=== PATIENT | male | born 1970 | race African-American/Black ===

== ENCOUNTER 2020-05-17 15:51 | Inpatient (IN) | payer OTHER ==
[2020-05-17 18:37] VITALS: BMI 24.0
[2020-05-17] MEDS ORDERED: BISMUTH SUBSALICYLATE 524 MG/30 ML UD PO PRN (21:13)
[2020-05-17] MEDS ORDERED: MAGNESIUM CITRATE 300 ML BOTTLE PO PRN (21:13)
[2020-05-17] MEDS ORDERED: NALOXONE HCL 0.4 MG/ML VIAL IM PRN (21:13)
[2020-05-17] MEDS ORDERED: MENTHOL/PHENOL 1 EACH UD MM PRN (21:13)
[2020-05-17] MEDS ORDERED: DICYCLOMINE HCL 10 MG CAPSULE PO PRN (21:13)
[2020-05-17] MEDS ORDERED: guaiFENesin 200 MG/10 ML 10 ML UNIT-DOSE CUPS PO PRN (21:13)
[2020-05-17] MEDS ORDERED: P-EPHED 60MG/TRIPROLIDI 2.5MG TABLET PO PRN (21:13)
[2020-05-17] MEDS ORDERED: ONDANSETRON *ODT* 4 MG TABLET SL PRN (21:13)
[2020-05-17] MEDS ORDERED: MAGNESIUM HYDROX 2400MG/30ML ORAL SUSPENSION 30 ML CUP PO PRN (21:13)
[2020-05-17] MEDS ORDERED: NICOTINE POLACRILEX 2 MG GUM BUC PRN (21:13)
[2020-05-17] MEDS ORDERED: NALOXONE (NARCAN) HCL 4 MG/0.1 ML SPRAY NS PRN (21:13)
[2020-05-17] MEDS ORDERED: MAG HYDROX/AL HYDROX/SIMETH 30 ML UNIT-DOSE CUP PO PRN (21:13)
[2020-05-17] MEDS ORDERED: ACETAMINOPHEN 325 MG TABLET (FP) PO PRN ×2 (21:13)
[2020-05-17] MEDS: MELATONIN 5 MG TABLETS PO SCH (22:17)
[2020-05-17] MEDS: THIAMINE HCL 100 MG TABLET (FP) PO SCH (22:17)
[2020-05-17] MEDS: METHOCARBAMOL 500 MG TABLET PO PRN (23:08)
[2020-05-18] MEDS ORDERED: METHADONE HCL 40 MG DISPERSABLE TABLET PO ONE (09:47)
[2020-05-18] MEDS ORDERED: chlordiazePOXIDE HCL 25 MG CAPSULE PO PRN (10:08)
[2020-05-18] MEDS: PRENATAL VITAMINS W/ FOLIC ACID TABLET (FP) PO SCH (10:08)
[2020-05-18] MEDS: NICOTINE 14 MG/24 HOURS TOPICAL PATCH TD SCH (10:08)
[2020-05-18] MEDS: METHOCARBAMOL 500 MG TABLET PO PRN ×2 (10:14→17:48)
[2020-05-18 11:29] LABS: POTASSIUM 3.9 mmol/L (3.5-5.1)
[2020-05-18 11:33] LABS: HEMATOCRIT 39.3 % (35.4-49); HEMOGLOBIN 12.6 GM/dL (11.7-16.9); MCH 23.4 pg (25.7-33.7); MCHC 32.1 g/dl (32.0-35.9); MEAN CELL VOLUME 72.9 fl (80-96); MEAN PLT VOLUME 8.1 fl (7.5-11.1); PLATELET COUNT 194 K/MM3 (134-434); RBC 5.39 M/mm3 (4.00-5.60); RDW 14.9 % (11.9-15.9); WHITE BLOOD COUNT 5.2 K/mm3 (4.0-10.0)
[2020-05-18 11:37] LABS: ALBUMIN 3.3 g/dl (3.4-5.0); BLOOD UREA NITROGEN 14.9 mg/dL (7-18); CALCIUM 8.7 mg/dL (8.5-10.1)
[2020-05-18 11:39] LABS: CREATININE 1.1 mg/dL (0.55-1.3)
[2020-05-18 11:41] LABS: BILIRUBIN,TOTAL 0.5 mg/dL (0.2-1); TOT PROT 6.3 g/dl (6.4-8.2)
[2020-05-18] MEDS: chlordiazePOXIDE HCL 25 MG CAPSULE PO SCH ×3 (12:49→22:25)
[2020-05-18] MEDS: MELATONIN 5 MG TABLETS PO SCH (22:26)
[2020-05-18] MEDS: THIAMINE HCL 100 MG TABLET (FP) PO SCH (22:27)
[2020-05-19] MEDS: chlordiazePOXIDE HCL 25 MG CAPSULE PO SCH ×4 (06:02→22:25)
[2020-05-19] MEDS: PRENATAL VITAMINS W/ FOLIC ACID TABLET (FP) PO SCH (10:27)
[2020-05-19] MEDS: NICOTINE 14 MG/24 HOURS TOPICAL PATCH TD SCH ×2 (10:28→13:42)
[2020-05-19] MEDS: METHOCARBAMOL 500 MG TABLET PO PRN ×2 (10:30→17:40)
[2020-05-19] MEDS: METHADONE HCL 40 MG DISPERSABLE TABLET PO SCH (11:35)
[2020-05-19] MEDS: VITAMINS A AND D TOPICAL OINTMENT 60 GM TUBE TP SCH ×2 (13:12→17:40)
[2020-05-19] MEDS: hydrOXYzine PAMOATE 25 MG CAPSULE (FP) PO PRN ×2 (17:40→22:25)
[2020-05-19 19:24] LABS: EPI CELLS 4 /uL (0-25.1); HYALINE CASTS 0 /uL (0-3.1); PH,URINE >= 9.0 (5.0-8.0); URINE APPEARANCE CLEAR; URINE BACTERIA 115 /uL (0-1359); URINE BILIRUBIN NEGATIVE (NEGATIVE); URINE COLOR YELLOW; URINE GLUCOSE (UA) NEGATIVE (NEGATIVE); URINE KETONE NEGATIVE (NEGATIVE); URINE LEUK ESTERASE NEGATIVE (NEGATIVE); URINE NITRITE NEGATIVE (NEGATIVE); URINE PROTEIN 1+ (NEGATIVE); URINE RBC 7 /uL (0-23.9); URINE WBC 20 /uL (0-25.8)
[2020-05-19] MEDS: THIAMINE HCL 100 MG TABLET (FP) PO SCH (22:25)
[2020-05-19] MEDS: MELATONIN 5 MG TABLETS PO SCH (23:02)
[2020-05-20] MEDS: VITAMINS A AND D TOPICAL OINTMENT 60 GM TUBE TP SCH ×4 (01:03→18:16)
[2020-05-20] MEDS: chlordiazePOXIDE HCL 25 MG CAPSULE PO SCH ×4 (05:41→22:31)
[2020-05-20] MEDS: METHADONE HCL 40 MG DISPERSABLE TABLET PO SCH (05:42)
[2020-05-20] MEDS: NICOTINE 14 MG/24 HOURS TOPICAL PATCH TD SCH (10:16)
[2020-05-20] MEDS: PRENATAL VITAMINS W/ FOLIC ACID TABLET (FP) PO SCH (10:16)
[2020-05-20] MEDS: hydrOXYzine PAMOATE 25 MG CAPSULE (FP) PO PRN ×2 (10:18→22:32)
[2020-05-20] MEDS: METHOCARBAMOL 500 MG TABLET PO PRN ×2 (10:18→18:17)
[2020-05-20] MEDS: IBUPROFEN 400 MG TABLET (FP) PO PRN ×2 (11:00→18:18)
[2020-05-20] MEDS ORDERED: MASKS NR ONE (21:16)
[2020-05-20] MEDS: THIAMINE HCL 100 MG TABLET (FP) PO SCH (22:31)
[2020-05-20] MEDS: MELATONIN 5 MG TABLETS PO SCH (22:32)
[2020-05-21] MEDS ORDERED: chlordiazePOXIDE HCL 10 MG CAPSULE PO PRN
[2020-05-21] MEDS: chlordiazePOXIDE HCL 10 MG CAPSULE PO SCH ×2 (05:27→10:17)
[2020-05-21] MEDS: METHADONE HCL 40 MG DISPERSABLE TABLET PO SCH (05:29)
[2020-05-21] MEDS: METHOCARBAMOL 500 MG TABLET PO PRN (05:33)
[2020-05-21] MEDS: NICOTINE 14 MG/24 HOURS TOPICAL PATCH TD SCH (10:17)
[2020-05-21] MEDS: PRENATAL VITAMINS W/ FOLIC ACID TABLET (FP) PO SCH (10:17)
[2020-05-21] MEDS: hydrOXYzine PAMOATE 25 MG CAPSULE (FP) PO PRN (10:17)
[2020-05-21] MEDS: VITAMINS A AND D TOPICAL OINTMENT 60 GM TUBE TP SCH (12:43)
[2020-05-21 12:51] VITALS: BP 110/57; PULSE 73; TEMP 96.8
[2020-05-22] MEDS ORDERED: chlordiazePOXIDE HCL 10 MG CAPSULE PO SCH (05:00)
[2020-05-23] MEDS ORDERED: chlordiazePOXIDE HCL 10 MG CAPSULE PO ONE (05:00)
== END 2020-05-21 15:24 | disposition left against medical advice (07) | DRG 770 ==
LOC: YASAS 15:51 → UNDOADMIN 20:58 → Y3N 20:58
PROVIDERS: ADMIT Allergy & Immunology; ATTEND Allergy & Immunology
PROC: HZ2ZZZZ Detoxification Services for Substance Abuse Treatment (ICD-10-PCS; principal; 2020-05-17)
DX: F10.230 Alcohol dependence with withdrawal, uncomplicated (principal); F11.20 Opioid dependence, uncomplicated; F14.10 Cocaine abuse, uncomplicated; F12.10 Cannabis abuse, uncomplicated; F17.210 Nicotine dependence, cigarettes, uncomplicated; F19.282 Other psychoactive substance dependence with psychoactive substance-induced sleep disorder; F19.24 Other psychoactive substance dependence with psychoactive substance-induced mood disorder; R45.89 Other symptoms and signs involving emotional state; Z56.0 Unemployment, unspecified; Z59.0 Homelessness
CPT/HCPCS: 36415; 80053; 81003; 85027; 86780; 93005; 93010; C9803; U0003

== ENCOUNTER 2020-06-13 10:58 | Inpatient (IN) | payer OTHER ==
[2020-06-13 11:35] VITALS: BMI 24.7
[2020-06-13] MEDS ORDERED: ONDANSETRON *ODT* 4 MG TABLET SL PRN (12:14)
[2020-06-13] MEDS ORDERED: MAGNESIUM CITRATE 300 ML BOTTLE PO PRN (12:14)
[2020-06-13] MEDS ORDERED: chlordiazePOXIDE HCL 25 MG CAPSULE PO PRN (12:14)
[2020-06-13] MEDS ORDERED: MAG HYDROX/AL HYDROX/SIMETH 30 ML UNIT-DOSE CUP PO PRN (12:14)
[2020-06-13] MEDS ORDERED: MAGNESIUM HYDROX 2400MG/30ML ORAL SUSPENSION 30 ML CUP PO PRN (12:14)
[2020-06-13] MEDS ORDERED: ACETAMINOPHEN 325 MG TABLET (FP) PO PRN ×2 (12:14)
[2020-06-13] MEDS ORDERED: NICOTINE POLACRILEX 2 MG GUM BUC PRN (12:14)
[2020-06-13] MEDS ORDERED: MENTHOL/PHENOL 1 EACH UD MM PRN (12:14)
[2020-06-13] MEDS ORDERED: BISMUTH SUBSALICYLATE 262 MG/15 ML BTL PO PRN (12:14)
[2020-06-13] MEDS: hydrOXYzine PAMOATE 25 MG CAPSULE (FP) PO SCH ×3 (13:27→22:37)
[2020-06-13] MEDS: PRENATAL VITAMINS W/ FOLIC ACID TABLET (FP) PO SCH (13:27)
[2020-06-13] MEDS: chlordiazePOXIDE HCL 25 MG CAPSULE PO SCH ×3 (13:28→22:38)
[2020-06-13 14:47] LABS: HEMOGLOBIN 13.1 GM/dL (11.7-16.9); MCH 23.4 pg (25.7-33.7); MEAN CELL VOLUME 73.1 fl (80-96); MEAN PLT VOLUME 8.6 fl (7.5-11.1); PLATELET COUNT 210 K/MM3 (134-434); RBC 5.61 M/mm3 (4.00-5.60); RDW 15.4 % (11.9-15.9); WHITE BLOOD COUNT 4.5 K/mm3 (4.0-10.0)
[2020-06-13 14:56] LABS: ALBUMIN 4.1 g/dl (3.4-5.0)
[2020-06-13 15:00] LABS: BILIRUBIN,TOTAL 0.6 mg/dL (0.2-1); TOT PROT 7.3 g/dl (6.4-8.2)
[2020-06-13] MEDS: MELATONIN 5 MG TABLETS PO SCH (22:38)
[2020-06-13] MEDS: THIAMINE HCL 100 MG TABLET (FP) PO SCH (22:38)
[2020-06-14] MEDS: hydrOXYzine PAMOATE 25 MG CAPSULE (FP) PO SCH ×5 (05:56→22:04)
[2020-06-14] MEDS: chlordiazePOXIDE HCL 25 MG CAPSULE PO SCH ×4 (05:56→22:05)
[2020-06-14] MEDS: METHADONE HCL 40 MG DISPERSABLE TABLET PO SCH (05:57)
[2020-06-14] MEDS: PRENATAL VITAMINS W/ FOLIC ACID TABLET (FP) PO SCH (10:39)
[2020-06-14] MEDS: NICOTINE 21 MG/24 HOURS TOPICAL PATCH TD SCH (12:13)
[2020-06-14] MEDS: THIAMINE HCL 100 MG TABLET (FP) PO SCH (22:04)
[2020-06-14] MEDS: MELATONIN 5 MG TABLETS PO SCH (22:04)
[2020-06-14] MEDS: METHOCARBAMOL 500 MG TABLET PO PRN (22:06)
[2020-06-15] MEDS: METHADONE HCL 40 MG DISPERSABLE TABLET PO SCH (05:21)
[2020-06-15] MEDS: chlordiazePOXIDE HCL 25 MG CAPSULE PO SCH ×4 (05:21→22:36)
[2020-06-15] MEDS: hydrOXYzine PAMOATE 25 MG CAPSULE (FP) PO SCH ×5 (05:22→22:36)
[2020-06-15] MEDS: PRENATAL VITAMINS W/ FOLIC ACID TABLET (FP) PO SCH (10:10)
[2020-06-15] MEDS: NICOTINE 21 MG/24 HOURS TOPICAL PATCH TD SCH (10:11)
[2020-06-15] MEDS: METHOCARBAMOL 500 MG TABLET PO PRN ×2 (10:13→18:33)
[2020-06-15] MEDS: VITAMINS A AND D TOPICAL OINTMENT 60 GM TUBE TP SCH ×2 (15:33→22:35)
[2020-06-15] MEDS: MELATONIN 5 MG TABLETS PO SCH (22:36)
[2020-06-15] MEDS: THIAMINE HCL 100 MG TABLET (FP) PO SCH (22:36)
[2020-06-15] MEDS: MELATONIN 5 MG TABLETS PO PRN (22:40)
[2020-06-16] MEDS ORDERED: chlordiazePOXIDE HCL 10 MG CAPSULE PO PRN
[2020-06-16] MEDS: hydrOXYzine PAMOATE 25 MG CAPSULE (FP) PO SCH ×5 (05:48→22:28)
[2020-06-16] MEDS: chlordiazePOXIDE HCL 10 MG CAPSULE PO SCH ×4 (05:48→22:30)
[2020-06-16] MEDS: METHADONE HCL 40 MG DISPERSABLE TABLET PO SCH (05:49)
[2020-06-16] MEDS: IBUPROFEN 400 MG TABLET (FP) PO PRN (05:51)
[2020-06-16] MEDS: METHOCARBAMOL 500 MG TABLET PO PRN ×3 (05:51→22:31)
[2020-06-16 08:06] LABS: SARS-CoV-2 NAA Not Detected (Not Detected)
[2020-06-16] MEDS: PRENATAL VITAMINS W/ FOLIC ACID TABLET (FP) PO SCH (10:01)
[2020-06-16] MEDS: VITAMINS A AND D TOPICAL OINTMENT 60 GM TUBE TP SCH ×2 (10:03→22:35)
[2020-06-16] MEDS: NICOTINE 21 MG/24 HOURS TOPICAL PATCH TD SCH (10:06)
[2020-06-16] MEDS: MELATONIN 5 MG TABLETS PO PRN (22:28)
[2020-06-16] MEDS: THIAMINE HCL 100 MG TABLET (FP) PO SCH (22:28)
[2020-06-16] MEDS: MELATONIN 5 MG TABLETS PO SCH (22:35)
[2020-06-17] MEDS: hydrOXYzine PAMOATE 25 MG CAPSULE (FP) PO SCH ×5 (05:29→22:30)
[2020-06-17] MEDS: chlordiazePOXIDE HCL 10 MG CAPSULE PO SCH ×2 (05:31→18:07)
[2020-06-17] MEDS: METHOCARBAMOL 500 MG TABLET PO PRN ×2 (05:31→18:06)
[2020-06-17] MEDS: METHADONE HCL 40 MG DISPERSABLE TABLET PO SCH (05:32)
[2020-06-17] MEDS: NICOTINE 14 MG/24 HOURS TOPICAL PATCH TD SCH ×2 (10:15→10:18)
[2020-06-17] MEDS: PRENATAL VITAMINS W/ FOLIC ACID TABLET (FP) PO SCH (10:17)
[2020-06-17] MEDS: VITAMINS A AND D TOPICAL OINTMENT 60 GM TUBE TP SCH ×2 (10:17→22:30)
[2020-06-17] MEDS: THIAMINE HCL 100 MG TABLET (FP) PO SCH (22:30)
[2020-06-17] MEDS: MELATONIN 5 MG TABLETS PO SCH (22:30)
[2020-06-17] MEDS: IBUPROFEN 400 MG TABLET (FP) PO PRN (22:32)
[2020-06-17] MEDS ORDERED: MASKS NR ONE (22:35)
[2020-06-18] MEDS ORDERED: chlordiazePOXIDE HCL 10 MG CAPSULE PO ONE (05:00)
[2020-06-18 06:43] VITALS: TEMP 97.1
[2020-06-18] MEDS: METHADONE HCL 40 MG DISPERSABLE TABLET PO SCH (06:43)
[2020-06-18] MEDS: hydrOXYzine PAMOATE 25 MG CAPSULE (FP) PO SCH ×2 (06:43→10:35)
[2020-06-18 09:23] VITALS: BP 110/61; PULSE 71
[2020-06-18] MEDS: VITAMINS A AND D TOPICAL OINTMENT 60 GM TUBE TP SCH (10:35)
[2020-06-18] MEDS: PRENATAL VITAMINS W/ FOLIC ACID TABLET (FP) PO SCH (10:36)
[2020-06-18] MEDS: NICOTINE 14 MG/24 HOURS TOPICAL PATCH TD SCH (10:36)
[2020-06-18] MEDS: METHOCARBAMOL 500 MG TABLET PO PRN (10:40)
== END 2020-06-18 11:22 | disposition other institution (70) | DRG 773 ==
LOC: YASAS 10:58 → Y3N 12:07
PROVIDERS: ADMIT Allergy & Immunology; ATTEND Allergy & Immunology
PROC: HZ2ZZZZ Detoxification Services for Substance Abuse Treatment (ICD-10-PCS; principal; 2020-06-13)
DX: F11.23 Opioid dependence with withdrawal (principal); F10.230 Alcohol dependence with withdrawal, uncomplicated; F14.20 Cocaine dependence, uncomplicated; F17.210 Nicotine dependence, cigarettes, uncomplicated; F12.20 Cannabis dependence, uncomplicated; F19.282 Other psychoactive substance dependence with psychoactive substance-induced sleep disorder; F19.24 Other psychoactive substance dependence with psychoactive substance-induced mood disorder; F41.9 Anxiety disorder, unspecified; R45.89 Other symptoms and signs involving emotional state; Z59.0 Homelessness
CPT/HCPCS: 36415; 80053; 85027; 86780; C9803; U0003; U0005

== ENCOUNTER 2020-06-18 11:26 | Inpatient (IN) | payer OTHER ==
[2020-06-18 12:07] VITALS: BP 112/71; PULSE 77; TEMP 97.5
[2020-06-18] MEDS ORDERED: hydrOXYzine PAMOATE 25 MG CAPSULE (FP) PO PRN (12:35)
[2020-06-18] MEDS ORDERED: P-EPHED 60MG/TRIPROLIDI 2.5MG TABLET PO PRN (12:35)
[2020-06-18] MEDS ORDERED: LOPERAMIDE HCL 2 MG CAPSULE PO PRN (12:35)
[2020-06-18] MEDS ORDERED: NICOTINE POLACRILEX 2 MG GUM BUC PRN (12:35)
[2020-06-18] MEDS ORDERED: guaiFENesin 200 MG/10 ML 10 ML UNIT-DOSE CUPS PO PRN (12:35)
[2020-06-18] MEDS ORDERED: MENTHOL/PHENOL 1 EACH UD MM PRN (12:35)
[2020-06-18] MEDS ORDERED: MAG HYDROX/AL HYDROX/SIMETH 30 ML UNIT-DOSE CUP PO PRN (12:35)
[2020-06-18] MEDS ORDERED: MAGNESIUM CITRATE 300 ML BOTTLE PO PRN (12:35)
[2020-06-18] MEDS ORDERED: ACETAMINOPHEN 325 MG TABLET (FP) PO PRN (12:35)
[2020-06-18] MEDS ORDERED: IBUPROFEN 400 MG TABLET (FP) PO PRN (12:35)
[2020-06-18] MEDS ORDERED: MAGNESIUM HYDROX 2400MG/30ML ORAL SUSPENSION 30 ML CUP PO PRN (12:35)
[2020-06-18] MEDS ORDERED: METHOCARBAMOL 500 MG TABLET PO SCH (14:00)
[2020-06-18] MEDS ORDERED: THIAMINE HCL 100 MG TABLET (FP) PO SCH (22:00)
[2020-06-18] MEDS ORDERED: MELATONIN 5 MG TABLETS PO SCH ×2 (22:00)
[2020-06-19] MEDS ORDERED: METHADONE HCL 40 MG DISPERSABLE TABLET PO SCH (06:00)
[2020-06-19] MEDS ORDERED: PRENATAL VITAMINS W/ FOLIC ACID TABLET (FP) PO SCH (10:00)
[2020-06-19] MEDS ORDERED: NICOTINE 7 MG/24 HOURS TOPICAL PATCH TD SCH (10:00)
== END 2020-06-18 13:40 | disposition left against medical advice (07) | DRG 770 ==
LOC: YASAS 11:26 → Y3W 11:28
PROVIDERS: ADMIT Allergy & Immunology; ATTEND Allergy & Immunology
PROC: HZ42ZZZ Group Counseling for Substance Abuse Treatment, Cognitive-Behavioral (ICD-10-PCS; principal; 2020-06-18)
DX: F11.20 Opioid dependence, uncomplicated (principal); F10.20 Alcohol dependence, uncomplicated; F12.20 Cannabis dependence, uncomplicated; F17.210 Nicotine dependence, cigarettes, uncomplicated; F19.24 Other psychoactive substance dependence with psychoactive substance-induced mood disorder; F41.9 Anxiety disorder, unspecified

== ENCOUNTER 2020-09-16 13:50 | Inpatient (IN) | payer OTHER ==
[2020-09-16 14:29] VITALS: BMI 23.3
[2020-09-16] MEDS ORDERED: NICOTINE POLACRILEX 2 MG GUM BUC PRN (18:43)
[2020-09-16] MEDS ORDERED: ONDANSETRON *ODT* 4 MG TABLET SL PRN (18:43)
[2020-09-16] MEDS ORDERED: ACETAMINOPHEN 325 MG TABLET (FP) PO PRN ×2 (18:43)
[2020-09-16] MEDS ORDERED: MAGNESIUM CITRATE 300 ML BOTTLE PO PRN (18:43)
[2020-09-16] MEDS ORDERED: MAG HYDROX/AL HYDROX/SIMETH 30 ML UNIT-DOSE CUP PO PRN (18:43)
[2020-09-16] MEDS ORDERED: MAGNESIUM HYDROX 2400MG/30ML ORAL SUSPENSION 30 ML CUP PO PRN (18:43)
[2020-09-16] MEDS ORDERED: MENTHOL/PHENOL 1 EACH UD MM PRN (18:43)
[2020-09-16] MEDS ORDERED: BISMUTH SUBSALICYLATE 524 MG/30 ML PO PRN (18:43)
[2020-09-16] MEDS ORDERED: LORazepam 1 MG TABLET PO PRN (18:46)
[2020-09-16] MEDS: METHOCARBAMOL 500 MG TABLET PO PRN (20:16)
[2020-09-16] MEDS: NICOTINE 14 MG/24 HOURS TOPICAL PATCH TD SCH (20:18)
[2020-09-16] MEDS: IBUPROFEN 400 MG TABLET (FP) PO PRN (20:30)
[2020-09-16] MEDS: MELATONIN 5 MG TABLETS PO SCH (22:20)
[2020-09-16] MEDS: hydrOXYzine PAMOATE 25 MG CAPSULE (FP) PO SCH (22:20)
[2020-09-16] MEDS: THIAMINE HCL 100 MG TABLET (FP) PO SCH (22:20)
[2020-09-16] MEDS: LORazepam 2 MG TABLET PO SCH (22:20)
[2020-09-17] MEDS: LORazepam 2 MG TABLET PO SCH ×4 (05:47→22:02)
[2020-09-17] MEDS: hydrOXYzine PAMOATE 25 MG CAPSULE (FP) PO SCH ×5 (05:48→21:57)
[2020-09-17] MEDS: METHOCARBAMOL 500 MG TABLET PO PRN ×3 (05:49→19:29)
[2020-09-17] MEDS ORDERED: methaDONE HCL 40 MG DISPERSABLE TABLET PO SCH (09:30)
[2020-09-17] MEDS ORDERED: methaDONE HCL 40 MG DISPERSABLE TABLET PO ONE (10:00)
[2020-09-17 10:18] LABS: HEMATOCRIT 41.3 % (35.4-49); HEMOGLOBIN 12.9 GM/dL (11.7-16.9); MCH 22.5 pg (25.7-33.7); MCHC 31.3 g/dl (32.0-35.9); PLATELET COUNT 192 10^3/uL (134-434); RBC 5.73 M/mm3 (4.00-5.60); RDW 14.6 % (11.9-15.9); WHITE BLOOD COUNT 4.9 K/mm3 (4.0-10.0)
[2020-09-17] MEDS: PRENATAL VITAMINS W/ FOLIC ACID TABLET (FP) PO SCH (10:19)
[2020-09-17] MEDS: NICOTINE 14 MG/24 HOURS TOPICAL PATCH TD SCH (10:19)
[2020-09-17] MEDS: IBUPROFEN 400 MG TABLET (FP) PO PRN (10:25)
[2020-09-17 10:30] LABS: BLOOD UREA NITROGEN 14.6 mg/dL (7-18); CALCIUM 8.6 mg/dL (8.5-10.1)
[2020-09-17 10:31] LABS: ALBUMIN 3.4 g/dl (3.4-5.0)
[2020-09-17 10:34] LABS: CREATININE 1.1 mg/dL (0.55-1.3)
[2020-09-17 10:36] LABS: BILIRUBIN,TOTAL 0.5 mg/dL (0.2-1); TOT PROT 6.3 g/dl (6.4-8.2)
[2020-09-17] MEDS: THIAMINE HCL 100 MG TABLET (FP) PO SCH (21:57)
[2020-09-17] MEDS: MELATONIN 5 MG TABLETS PO SCH (21:57)
[2020-09-18] MEDS: LORazepam 1 MG TABLET PO SCH ×2 (05:49→10:09)
[2020-09-18] MEDS: hydrOXYzine PAMOATE 25 MG CAPSULE (FP) PO SCH ×2 (05:49→10:10)
[2020-09-18] MEDS: METHOCARBAMOL 500 MG TABLET PO PRN ×2 (05:50→12:26)
[2020-09-18] MEDS ORDERED: methaDONE HCL 10 MG TABLET PO SCH (06:00)
[2020-09-18] MEDS: PRENATAL VITAMINS W/ FOLIC ACID TABLET (FP) PO SCH (10:09)
[2020-09-18] MEDS: NICOTINE 14 MG/24 HOURS TOPICAL PATCH TD SCH (10:10)
[2020-09-18 13:44] VITALS: BP 123/61; PULSE 63; TEMP 98.2
[2020-09-19] MEDS ORDERED: LORazepam 0.5 MG TABLET PO PRN
[2020-09-19] MEDS ORDERED: LORazepam 0.5 MG TABLET PO SCH (05:00)
[2020-09-20] MEDS ORDERED: LORazepam 0.5 MG TABLET PO ONE (05:00)
== END 2020-09-18 13:37 | disposition left against medical advice (07) | DRG 770 ==
LOC: YASAS 13:50 → Y6N 18:14
PROVIDERS: ADMIT Allergy & Immunology; ATTEND Allergy & Immunology
PROC: HZ2ZZZZ Detoxification Services for Substance Abuse Treatment (ICD-10-PCS; principal; 2020-09-16)
DX: F10.230 Alcohol dependence with withdrawal, uncomplicated (principal); F13.230 Sedative, hypnotic or anxiolytic dependence with withdrawal, uncomplicated; F11.20 Opioid dependence, uncomplicated; F14.20 Cocaine dependence, uncomplicated; F12.20 Cannabis dependence, uncomplicated; F17.213 Nicotine dependence, cigarettes, with withdrawal; R63.4 Abnormal weight loss; Z68.23 Body mass index [BMI] 23.0-23.9, adult
CPT/HCPCS: 36415; 80053; 82962; 85027; 86780; C9803; U0003; U0005

== ENCOUNTER 2020-10-09 13:51 | Inpatient (IN) | payer OTHER ==
[2020-10-09 15:38] VITALS: BMI 28.3
[2020-10-09] MEDS ORDERED: MAGNESIUM HYDROX 2400MG/30ML ORAL SUSPENSION 30 ML CUP PO PRN (21:28)
[2020-10-09] MEDS ORDERED: ONDANSETRON *ODT* 4 MG TABLET SL PRN (21:28)
[2020-10-09] MEDS ORDERED: P-EPHED 60MG/TRIPROLIDI 2.5MG TABLET PO PRN (21:28)
[2020-10-09] MEDS ORDERED: MENTHOL/PHENOL 1 EACH UD MM PRN (21:28)
[2020-10-09] MEDS ORDERED: NALOXONE HCL 0.4 MG/ML VIAL IM PRN (21:28)
[2020-10-09] MEDS ORDERED: MAG HYDROX/AL HYDROX/SIMETH 30 ML UNIT-DOSE CUP PO PRN (21:28)
[2020-10-09] MEDS ORDERED: MAGNESIUM CITRATE 300 ML BOTTLE PO PRN (21:28)
[2020-10-09] MEDS ORDERED: ACETAMINOPHEN 325 MG TABLET (FP) PO PRN (21:28)
[2020-10-09] MEDS ORDERED: DICYCLOMINE HCL 10 MG CAPSULE PO PRN (21:28)
[2020-10-09] MEDS ORDERED: NICOTINE 10 MG CARTRIDGE (INHALER) IH PRN (21:28)
[2020-10-09] MEDS ORDERED: NALOXONE (NARCAN) HCL 4 MG/0.1 ML SPRAY NS PRN (21:28)
[2020-10-09] MEDS ORDERED: BISMUTH SUBSALICYLATE 524 MG/30 ML PO PRN (21:28)
[2020-10-09] MEDS: hydrOXYzine PAMOATE 25 MG CAPSULE (FP) PO SCH (23:14)
[2020-10-09] MEDS: THIAMINE HCL 100 MG TABLET (FP) PO SCH (23:16)
[2020-10-09] MEDS: MELATONIN 5 MG TABLETS PO SCH (23:16)
[2020-10-09] MEDS: METHOCARBAMOL 500 MG TABLET PO PRN (23:17)
[2020-10-10] MEDS: hydrOXYzine PAMOATE 25 MG CAPSULE (FP) PO SCH ×5 (06:22→22:38)
[2020-10-10] MEDS ORDERED: diazePAM 5 MG TABLET PO PRN (09:34)
[2020-10-10] MEDS: methaDONE HCL 40 MG DISPERSABLE TABLET PO SCH (10:29)
[2020-10-10] MEDS: METHOCARBAMOL 500 MG TABLET PO PRN ×2 (10:29→18:05)
[2020-10-10] MEDS: NICOTINE 21 MG/24 HOURS TOPICAL PATCH TD SCH (10:29)
[2020-10-10] MEDS: PRENATAL VITAMINS W/ FOLIC ACID TABLET (FP) PO SCH (10:30)
[2020-10-10] MEDS: diazePAM 5 MG TABLET PO SCH ×3 (10:31→22:37)
[2020-10-10 12:34] LABS: HEMATOCRIT 38.2 % (35.4-49); HEMOGLOBIN 12.2 GM/dL (11.7-16.9); MCHC 31.9 g/dl (32.0-35.9); MEAN CELL VOLUME 72.2 fl (80-96); MEAN PLT VOLUME 8.3 fl (7.5-11.1); PLATELET COUNT 193 10^3/uL (134-434); RBC 5.29 M/mm3 (4.00-5.60); RDW 15.2 % (11.9-15.9); WHITE BLOOD COUNT 4.3 K/mm3 (4.0-10.0)
[2020-10-10 12:35] LABS: ALBUMIN 3.2 g/dl (3.4-5.0)
[2020-10-10 12:40] LABS: BILIRUBIN,TOTAL 0.3 mg/dL (0.2-1); TOT PROT 5.8 g/dl (6.4-8.2)
[2020-10-10] MEDS: MELATONIN 5 MG TABLETS PO SCH (22:38)
[2020-10-10] MEDS: THIAMINE HCL 100 MG TABLET (FP) PO SCH (22:38)
[2020-10-10] MEDS: IBUPROFEN 400 MG TABLET (FP) PO PRN (22:40)
[2020-10-11] MEDS: diazePAM 5 MG TABLET PO SCH ×4 (05:57→22:08)
[2020-10-11] MEDS: methaDONE HCL 40 MG DISPERSABLE TABLET PO SCH (05:57)
[2020-10-11] MEDS: hydrOXYzine PAMOATE 25 MG CAPSULE (FP) PO SCH ×5 (05:57→22:08)
[2020-10-11] MEDS: METHOCARBAMOL 500 MG TABLET PO PRN ×4 (06:01→22:08)
[2020-10-11] MEDS: PRENATAL VITAMINS W/ FOLIC ACID TABLET (FP) PO SCH (10:35)
[2020-10-11] MEDS: NICOTINE 21 MG/24 HOURS TOPICAL PATCH TD SCH (10:35)
[2020-10-11] MEDS: ACETAMINOPHEN 325 MG TABLET (FP) PO PRN (10:37)
[2020-10-11] MEDS: IBUPROFEN 400 MG TABLET (FP) PO PRN (18:02)
[2020-10-11] MEDS: MELATONIN 5 MG TABLETS PO SCH (22:07)
[2020-10-11] MEDS: THIAMINE HCL 100 MG TABLET (FP) PO SCH (22:07)
[2020-10-12] MEDS: diazePAM 5 MG TABLET PO SCH ×3 (05:57→22:12)
[2020-10-12] MEDS: methaDONE HCL 40 MG DISPERSABLE TABLET PO SCH (05:57)
[2020-10-12] MEDS: hydrOXYzine PAMOATE 25 MG CAPSULE (FP) PO SCH ×6 (05:57→22:11)
[2020-10-12] MEDS: METHOCARBAMOL 500 MG TABLET PO PRN ×2 (06:01→18:29)
[2020-10-12] MEDS: NICOTINE 21 MG/24 HOURS TOPICAL PATCH TD SCH (10:47)
[2020-10-12] MEDS: PRENATAL VITAMINS W/ FOLIC ACID TABLET (FP) PO SCH (10:48)
[2020-10-12] MEDS: MELATONIN 5 MG TABLETS PO SCH (22:11)
[2020-10-12] MEDS: THIAMINE HCL 100 MG TABLET (FP) PO SCH (22:11)
[2020-10-13] MEDS: METHOCARBAMOL 500 MG TABLET PO PRN ×3 (00:23→18:29)
[2020-10-13] MEDS: methaDONE HCL 40 MG DISPERSABLE TABLET PO SCH (05:55)
[2020-10-13] MEDS: diazePAM 5 MG TABLET PO SCH ×2 (05:57→18:29)
[2020-10-13] MEDS: hydrOXYzine PAMOATE 25 MG CAPSULE (FP) PO SCH ×5 (07:25→22:41)
[2020-10-13] MEDS: PRENATAL VITAMINS W/ FOLIC ACID TABLET (FP) PO SCH (10:00)
[2020-10-13] MEDS: ACETAMINOPHEN 325 MG TABLET (FP) PO PRN ×2 (10:00→18:32)
[2020-10-13] MEDS: NICOTINE 21 MG/24 HOURS TOPICAL PATCH TD SCH (10:02)
[2020-10-13] MEDS: MELATONIN 5 MG TABLETS PO SCH (22:41)
[2020-10-13] MEDS: THIAMINE HCL 100 MG TABLET (FP) PO SCH (22:41)
[2020-10-14] MEDS: METHOCARBAMOL 500 MG TABLET PO PRN ×2 (01:10→06:48)
[2020-10-14] MEDS ORDERED: diazePAM 5 MG TABLET PO ONE (06:00)
[2020-10-14] MEDS: methaDONE HCL 40 MG DISPERSABLE TABLET PO SCH (06:46)
[2020-10-14] MEDS: hydrOXYzine PAMOATE 25 MG CAPSULE (FP) PO SCH (06:47)
[2020-10-14 09:15] VITALS: BP 111/59; PULSE 64; TEMP 97.3
== END 2020-10-14 10:13 | disposition home or self-care (01) | DRG 773 ==
LOC: YASAS 13:51 → Y3N 22:07
PROVIDERS: ADMIT Allergy & Immunology; ATTEND Allergy & Immunology
PROC: HZ2ZZZZ Detoxification Services for Substance Abuse Treatment (ICD-10-PCS; principal; 2020-10-09)
DX: F10.230 Alcohol dependence with withdrawal, uncomplicated (principal); F13.230 Sedative, hypnotic or anxiolytic dependence with withdrawal, uncomplicated; F11.20 Opioid dependence, uncomplicated; F14.20 Cocaine dependence, uncomplicated; F12.20 Cannabis dependence, uncomplicated; F17.210 Nicotine dependence, cigarettes, uncomplicated; F19.24 Other psychoactive substance dependence with psychoactive substance-induced mood disorder; Z91.14 Patient's other noncompliance with medication regimen; Z56.0 Unemployment, unspecified; Z59.0 Homelessness
CPT/HCPCS: 36415; 80053; 85027; 86780; C9803; U0003; U0005

== ENCOUNTER 2021-04-19 15:38 | Inpatient (IN) | payer OTHER ==
[2021-04-19 18:19] VITALS: BMI 27.3
[2021-04-19] MEDS ORDERED: MAG HYDROX/AL HYDROX/SIMETH 30 ML UNIT-DOSE CUP PO PRN (20:29)
[2021-04-19] MEDS ORDERED: NALOXONE (NARCAN) HCL 4 MG/0.1 ML SPRAY NS PRN (20:29)
[2021-04-19] MEDS ORDERED: MENTHOL/PHENOL 1 EACH UD MM PRN (20:29)
[2021-04-19] MEDS ORDERED: LOPERAMIDE HCL 2 MG CAPSULE PO PRN (20:29)
[2021-04-19] MEDS ORDERED: DICYCLOMINE HCL 10 MG CAPSULE PO PRN (20:29)
[2021-04-19] MEDS ORDERED: guaiFENesin 200 MG/10 ML 10 ML UNIT-DOSE CUPS PO PRN (20:29)
[2021-04-19] MEDS ORDERED: MAGNESIUM CITRATE 300 ML BOTTLE PO PRN (20:29)
[2021-04-19] MEDS ORDERED: MAGNESIUM HYDROX 2400MG/30ML ORAL SUSPENSION 30 ML CUP PO PRN (20:29)
[2021-04-19] MEDS ORDERED: BISMUTH SUBSALICYLATE 524 MG/30 ML PO PRN (20:29)
[2021-04-19] MEDS ORDERED: ONDANSETRON *ODT* 4 MG TABLET SL PRN (20:29)
[2021-04-19] MEDS ORDERED: ACETAMINOPHEN 325 MG TABLET (FP) PO PRN ×2 (20:29)
[2021-04-19] MEDS ORDERED: P-EPHED 60MG/TRIPROLIDI 2.5MG TABLET PO PRN (20:29)
[2021-04-19] MEDS ORDERED: NALOXONE HCL 0.4 MG/ML VIAL IM PRN (20:29)
[2021-04-19] MEDS: MELATONIN 5 MG TABLETS PO SCH (22:50)
[2021-04-19] MEDS: THIAMINE HCL 100 MG TABLET (FP) PO SCH (22:50)
[2021-04-19] MEDS: hydrOXYzine PAMOATE 25 MG CAPSULE (FP) PO PRN (22:50)
[2021-04-19] MEDS: METHOCARBAMOL 500 MG TABLET PO PRN (22:53)
[2021-04-20] MEDS: hydrOXYzine PAMOATE 25 MG CAPSULE (FP) PO PRN ×4 (07:04→22:11)
[2021-04-20] MEDS: METHOCARBAMOL 500 MG TABLET PO PRN ×4 (07:04→22:10)
[2021-04-20] MEDS: IBUPROFEN 400 MG TABLET (FP) PO PRN ×2 (07:06→14:09)
[2021-04-20] MEDS: PRENATAL VITAMINS W/ FOLIC ACID TABLET (FP) PO SCH (10:02)
[2021-04-20] MEDS: NICOTINE 14 MG/24 HOURS TOPICAL PATCH TD SCH (10:03)
[2021-04-20] MEDS ORDERED: methaDONE HCL 10 MG TABLET PO ONE (10:30)
[2021-04-20] MEDS: diazePAM 5 MG TABLET PO SCH ×3 (10:44→22:11)
[2021-04-20] MEDS: NICOTINE POLACRILEX 2 MG GUM BUC PRN ×3 (10:47→15:29)
[2021-04-20 16:36] LABS: HEMATOCRIT 40.8 % (35.4-49); HEMOGLOBIN 12.6 GM/dL (11.7-16.9); MCHC 30.8 g/dl (32.0-35.9); MEAN CELL VOLUME 68.3 fl (80-96); MEAN PLT VOLUME 8.9 fl (7.5-11.1); PLATELET COUNT 241 10^3/uL (134-434); RBC 5.98 M/mm3 (4.00-5.60); RDW 16.8 % (11.9-15.9); WHITE BLOOD COUNT 4.4 K/mm3 (4.0-10.0)
[2021-04-20 16:52] LABS: ALBUMIN 3.9 g/dl (3.4-5.0); BLOOD UREA NITROGEN 12.6 mg/dL (7-18)
[2021-04-20 16:55] LABS: CREATININE 1.1 mg/dL (0.55-1.3)
[2021-04-20 16:57] LABS: BILIRUBIN,TOTAL 0.7 mg/dL (0.2-1)
[2021-04-20] MEDS: MELATONIN 5 MG TABLETS PO SCH (22:10)
[2021-04-20] MEDS: THIAMINE HCL 100 MG TABLET (FP) PO SCH (22:11)
[2021-04-21] MEDS: diazePAM 5 MG TABLET PO SCH ×3 (05:45→22:10)
[2021-04-21] MEDS: METHOCARBAMOL 500 MG TABLET PO PRN ×3 (05:46→22:45)
[2021-04-21] MEDS: NICOTINE POLACRILEX 2 MG GUM BUC PRN ×5 (05:48→22:46)
[2021-04-21 08:10] LABS: SARS-CoV-2 NAA Not Detected (Not Detected)
[2021-04-21] MEDS ORDERED: methaDONE HCL 10 MG TABLET PO ONE (10:00)
[2021-04-21] MEDS ORDERED: methaDONE 40 MG, methaDONE 10 MG PO ONE (10:10)
[2021-04-21] MEDS: PRENATAL VITAMINS W/ FOLIC ACID TABLET (FP) PO SCH (10:20)
[2021-04-21] MEDS: hydrOXYzine PAMOATE 25 MG CAPSULE (FP) PO PRN (10:20)
[2021-04-21] MEDS: diazePAM 5 MG TABLET PO PRN (10:21)
[2021-04-21] MEDS: NICOTINE 14 MG/24 HOURS TOPICAL PATCH TD SCH (10:22)
[2021-04-21] MEDS ORDERED: methaDONE HCL 40 MG DISPERSABLE TABLET ONE (10:23)
[2021-04-21] MEDS ORDERED: methaDONE HCL 10 MG TABLET ONE (10:23)
[2021-04-21] MEDS ORDERED: cloNIDine HCL 0.1 MG TABLET PO PRN (12:24)
[2021-04-21] MEDS: SERTRALINE HCL 50 MG TABLET (FP) PO SCH (15:34)
[2021-04-21] MEDS: ARIPiprazole 2 MG TABLET PO SCH ×2 (16:00→16:04)
[2021-04-21] MEDS: THIAMINE HCL 100 MG TABLET (FP) PO SCH (22:09)
[2021-04-21] MEDS: traZODone HCL 50 MG TABLET (FP) PO SCH (22:09)
[2021-04-21] MEDS: MELATONIN 5 MG TABLETS PO SCH (22:09)
[2021-04-22] MEDS ORDERED: methaDONE HCL 10 MG TABLET ONE (04:25)
[2021-04-22] MEDS ORDERED: methaDONE HCL 40 MG DISPERSABLE TABLET ONE (04:25)
[2021-04-22] MEDS ORDERED: methaDONE HCL 10 MG TABLET PO SCH (06:00)
[2021-04-22] MEDS: diazePAM 5 MG TABLET PO SCH ×2 (06:01→18:44)
[2021-04-22] MEDS: methaDONE 40 MG, methaDONE 10 MG PO SCH (06:01)
[2021-04-22] MEDS: METHOCARBAMOL 500 MG TABLET PO PRN ×3 (06:01→18:45)
[2021-04-22] MEDS: IBUPROFEN 400 MG TABLET (FP) PO PRN ×3 (06:06→23:00)
[2021-04-22] MEDS: NICOTINE POLACRILEX 2 MG GUM BUC PRN ×3 (06:11→15:09)
[2021-04-22] MEDS: hydrOXYzine PAMOATE 25 MG CAPSULE (FP) PO PRN ×4 (10:21→22:02)
[2021-04-22] MEDS: SERTRALINE HCL 50 MG TABLET (FP) PO SCH (10:21)
[2021-04-22] MEDS: PRENATAL VITAMINS W/ FOLIC ACID TABLET (FP) PO SCH (10:21)
[2021-04-22] MEDS: ARIPiprazole 2 MG TABLET PO SCH (10:21)
[2021-04-22] MEDS: diazePAM 5 MG TABLET PO PRN ×3 (10:22→22:02)
[2021-04-22] MEDS: NICOTINE 14 MG/24 HOURS TOPICAL PATCH TD SCH (10:22)
[2021-04-22] MEDS: THIAMINE HCL 100 MG TABLET (FP) PO SCH (22:01)
[2021-04-22] MEDS: MELATONIN 5 MG TABLETS PO SCH (22:01)
[2021-04-22] MEDS: traZODone HCL 50 MG TABLET (FP) PO SCH (22:01)
[2021-04-23] MEDS ORDERED: methaDONE HCL 10 MG TABLET ONE (03:37)
[2021-04-23] MEDS ORDERED: methaDONE HCL 40 MG DISPERSABLE TABLET ONE (03:38)
[2021-04-23] MEDS: methaDONE 40 MG, methaDONE 10 MG PO SCH (05:37)
[2021-04-23] MEDS: METHOCARBAMOL 500 MG TABLET PO PRN (05:41)
[2021-04-23] MEDS: hydrOXYzine PAMOATE 25 MG CAPSULE (FP) PO PRN (05:41)
[2021-04-23] MEDS: NICOTINE POLACRILEX 2 MG GUM BUC PRN ×2 (05:44→10:17)
[2021-04-23] MEDS ORDERED: diazePAM 5 MG TABLET PO ONE (06:00)
[2021-04-23 09:47] VITALS: BP 128/82; PULSE 63; TEMP 97.7
[2021-04-23] MEDS: ARIPiprazole 2 MG TABLET PO SCH (10:10)
[2021-04-23] MEDS: SERTRALINE HCL 50 MG TABLET (FP) PO SCH (10:10)
[2021-04-23] MEDS: PRENATAL VITAMINS W/ FOLIC ACID TABLET (FP) PO SCH (10:15)
[2021-04-23] MEDS: NICOTINE 14 MG/24 HOURS TOPICAL PATCH TD SCH (10:15)
== END 2021-04-23 11:06 | disposition home or self-care (01) | DRG 773 ==
LOC: YASAS 15:38 → Y6N 20:53
PROVIDERS: ADMIT Allergy & Immunology; ATTEND Allergy & Immunology
PROC: HZ2ZZZZ Detoxification Services for Substance Abuse Treatment (ICD-10-PCS; principal; 2021-04-19)
DX: F10.230 Alcohol dependence with withdrawal, uncomplicated (principal); F11.20 Opioid dependence, uncomplicated; F14.20 Cocaine dependence, uncomplicated; F17.210 Nicotine dependence, cigarettes, uncomplicated; F25.1 Schizoaffective disorder, depressive type; F19.282 Other psychoactive substance dependence with psychoactive substance-induced sleep disorder; F19.24 Other psychoactive substance dependence with psychoactive substance-induced mood disorder; F63.9 Impulse disorder, unspecified; Z91.19 Patient's noncompliance with other medical treatment and regimen; Z56.0 Unemployment, unspecified; Z59.00 Homelessness unspecified
CPT/HCPCS: 36415; 80053; 85027; 86780; 87811; C9803; U0003; U0005

== ENCOUNTER 2021-08-19 11:03 | Inpatient (IN) | payer OTHER ==
[2021-08-19 11:45] VITALS: BMI 28.2
[2021-08-19] MEDS ORDERED: DICYCLOMINE HCL 10 MG CAPSULE PO PRN (12:24)
[2021-08-19] MEDS ORDERED: NICOTINE 10 MG CARTRIDGE (INHALER) IH PRN (12:24)
[2021-08-19] MEDS ORDERED: BISMUTH SUBSALICYLATE 262 MG/15 ML BTL PO PRN (12:24)
[2021-08-19] MEDS ORDERED: IBUPROFEN 400 MG TABLET (FP) PO PRN (12:24)
[2021-08-19] MEDS ORDERED: MAGNESIUM HYDROX 2400MG/30ML ORAL SUSPENSION 30 ML CUP PO PRN (12:24)
[2021-08-19] MEDS ORDERED: IBUPROFEN 600 MG TABLET (FP) PO PRN (12:24)
[2021-08-19] MEDS ORDERED: MAGNESIUM CITRATE 300 ML BOTTLE PO PRN (12:24)
[2021-08-19] MEDS ORDERED: ONDANSETRON *ODT* 4 MG TABLET SL PRN (12:24)
[2021-08-19] MEDS ORDERED: ACETAMINOPHEN 325 MG TABLET (FP) PO PRN ×2 (12:24)
[2021-08-19] MEDS ORDERED: BENZOCAINE/MENTHOL (CHLORASEPTIC ) LOZENGE MM PRN (12:24)
[2021-08-19] MEDS ORDERED: LOPERAMIDE HCL 2 MG CAPSULE PO PRN (12:24)
[2021-08-19] MEDS ORDERED: MAG HYDROX/AL HYDROX/SIMETH 30 ML UNIT-DOSE CUP PO PRN (12:24)
[2021-08-19] MEDS: hydrOXYzine PAMOATE 25 MG CAPSULE (FP) PO PRN (17:49)
[2021-08-19] MEDS: METHOCARBAMOL 500 MG TABLET PO PRN (17:52)
[2021-08-19] MEDS: MELATONIN 5 MG TABLETS PO SCH (22:34)
[2021-08-19] MEDS: THIAMINE HCL 100 MG TABLET (FP) PO SCH (22:34)
[2021-08-20] MEDS ORDERED: methaDONE HCL 10 MG TABLET ONE (04:40)
[2021-08-20] MEDS ORDERED: methaDONE HCL 40 MG DISPERSABLE TABLET ONE (04:40)
[2021-08-20] MEDS: methaDONE 40 MG, methaDONE 10 MG PO SCH (05:43)
[2021-08-20] MEDS ORDERED: methaDONE HCL 10 MG TABLET PO SCH (06:00)
[2021-08-20] MEDS ORDERED: chlordiazePOXIDE HCL 25 MG CAPSULE PO PRN (08:53)
[2021-08-20] MEDS: chlordiazePOXIDE HCL 25 MG CAPSULE PO SCH ×3 (10:22→22:21)
[2021-08-20] MEDS: PRENATAL VITAMINS W/ FOLIC ACID TABLET (FP) PO SCH (10:23)
[2021-08-20] MEDS: NICOTINE 14 MG/24 HOURS TOPICAL PATCH TD SCH (10:23)
[2021-08-20 10:34] LABS: ALBUMIN 4.1 g/dl (3.4-5.0); CALCIUM 9.3 mg/dL (8.5-10.1)
[2021-08-20 10:36] LABS: BLOOD UREA NITROGEN 15.3 mg/dL (7-18)
[2021-08-20 10:37] LABS: CREATININE 1.2 mg/dL (0.55-1.3)
[2021-08-20 10:40] LABS: BILIRUBIN,TOTAL 0.4 mg/dL (0.2-1); TOT PROT 7.5 g/dl (6.4-8.2)
[2021-08-20 10:42] LABS: HEMATOCRIT 42.3 % (35.4-49); HEMOGLOBIN 13.3 GM/dL (11.7-16.9); MCH 21.4 pg (25.7-33.7); MCHC 31.4 g/dl (32.0-35.9); MEAN CELL VOLUME 68.3 fl (80-96); MEAN PLT VOLUME 8.5 fl (7.5-11.1); PLATELET COUNT 218 10^3/uL (134-434); RBC 6.19 M/mm3 (4.00-5.60); WHITE BLOOD COUNT 5.5 K/mm3 (4.0-10.0)
[2021-08-20] MEDS: METHOCARBAMOL 500 MG TABLET PO PRN ×2 (11:49→22:24)
[2021-08-20] MEDS: NICOTINE POLACRILEX 2 MG GUM BUC PRN ×4 (13:12→22:25)
[2021-08-20] MEDS: MELATONIN 5 MG TABLETS PO SCH (22:20)
[2021-08-20] MEDS: THIAMINE HCL 100 MG TABLET (FP) PO SCH (22:21)
[2021-08-20] MEDS: hydrOXYzine PAMOATE 25 MG CAPSULE (FP) PO PRN (22:22)
[2021-08-21] MEDS ORDERED: methaDONE HCL 40 MG DISPERSABLE TABLET ONE (04:36)
[2021-08-21] MEDS ORDERED: methaDONE HCL 10 MG TABLET ONE (04:36)
[2021-08-21] MEDS: chlordiazePOXIDE HCL 25 MG CAPSULE PO SCH ×4 (05:32→22:39)
[2021-08-21] MEDS: methaDONE 40 MG, methaDONE 10 MG PO SCH (05:33)
[2021-08-21] MEDS: METHOCARBAMOL 500 MG TABLET PO PRN (05:33)
[2021-08-21] MEDS: hydrOXYzine PAMOATE 25 MG CAPSULE (FP) PO PRN ×4 (05:35→22:38)
[2021-08-21] MEDS: NICOTINE POLACRILEX 2 MG GUM BUC PRN ×4 (05:37→20:47)
[2021-08-21] MEDS: PRENATAL VITAMINS W/ FOLIC ACID TABLET (FP) PO SCH (10:30)
[2021-08-21] MEDS: NICOTINE 14 MG/24 HOURS TOPICAL PATCH TD SCH (10:30)
[2021-08-21] MEDS: SERTRALINE HCL 50 MG TABLET (FP) PO SCH (12:27)
[2021-08-21] MEDS: ARIPiprazole 2 MG TABLET PO SCH (12:27)
[2021-08-21] MEDS: THIAMINE HCL 100 MG TABLET (FP) PO SCH (22:38)
[2021-08-21] MEDS: MELATONIN 5 MG TABLETS PO SCH (22:38)
[2021-08-22] MEDS ORDERED: methaDONE HCL 40 MG DISPERSABLE TABLET ONE (04:52)
[2021-08-22] MEDS ORDERED: methaDONE HCL 10 MG TABLET ONE (04:52)
[2021-08-22] MEDS: methaDONE 40 MG, methaDONE 10 MG PO SCH (05:45)
[2021-08-22] MEDS: chlordiazePOXIDE HCL 25 MG CAPSULE PO SCH ×4 (05:45→22:11)
[2021-08-22] MEDS: hydrOXYzine PAMOATE 25 MG CAPSULE (FP) PO PRN ×3 (05:47→22:12)
[2021-08-22] MEDS: METHOCARBAMOL 500 MG TABLET PO PRN ×3 (05:47→22:12)
[2021-08-22] MEDS: ARIPiprazole 2 MG TABLET PO SCH (11:31)
[2021-08-22] MEDS: SERTRALINE HCL 50 MG TABLET (FP) PO SCH (11:31)
[2021-08-22] MEDS: NICOTINE 14 MG/24 HOURS TOPICAL PATCH TD SCH (11:32)
[2021-08-22] MEDS: PRENATAL VITAMINS W/ FOLIC ACID TABLET (FP) PO SCH (11:32)
[2021-08-22] MEDS: NICOTINE POLACRILEX 2 MG GUM BUC PRN ×3 (11:36→22:13)
[2021-08-22] MEDS: THIAMINE HCL 100 MG TABLET (FP) PO SCH (22:11)
[2021-08-22] MEDS: MELATONIN 5 MG TABLETS PO SCH (22:11)
[2021-08-23] MEDS ORDERED: chlordiazePOXIDE HCL 10 MG CAPSULE PO PRN
[2021-08-23] MEDS ORDERED: methaDONE HCL 10 MG TABLET ONE (04:24)
[2021-08-23] MEDS ORDERED: methaDONE HCL 40 MG DISPERSABLE TABLET ONE (04:24)
[2021-08-23] MEDS: chlordiazePOXIDE HCL 10 MG CAPSULE PO SCH ×4 (05:22→22:04)
[2021-08-23] MEDS: methaDONE 40 MG, methaDONE 10 MG PO SCH (05:22)
[2021-08-23] MEDS: hydrOXYzine PAMOATE 25 MG CAPSULE (FP) PO PRN ×5 (05:23→22:05)
[2021-08-23] MEDS: ARIPiprazole 2 MG TABLET PO SCH (10:20)
[2021-08-23] MEDS: SERTRALINE HCL 50 MG TABLET (FP) PO SCH (10:21)
[2021-08-23] MEDS: METHOCARBAMOL 500 MG TABLET PO PRN ×3 (10:21→23:07)
[2021-08-23] MEDS: NICOTINE 14 MG/24 HOURS TOPICAL PATCH TD SCH (10:22)
[2021-08-23] MEDS: PRENATAL VITAMINS W/ FOLIC ACID TABLET (FP) PO SCH (10:25)
[2021-08-23] MEDS: NICOTINE POLACRILEX 2 MG GUM BUC PRN ×3 (10:26→18:17)
[2021-08-23] MEDS: THIAMINE HCL 100 MG TABLET (FP) PO SCH (22:04)
[2021-08-23] MEDS: MELATONIN 5 MG TABLETS PO SCH (22:04)
[2021-08-24] MEDS ORDERED: methaDONE HCL 10 MG TABLET ONE (04:22)
[2021-08-24] MEDS ORDERED: methaDONE HCL 40 MG DISPERSABLE TABLET ONE (04:22)
[2021-08-24] MEDS: chlordiazePOXIDE HCL 10 MG CAPSULE PO SCH ×2 (05:59→17:48)
[2021-08-24] MEDS: methaDONE 40 MG, methaDONE 10 MG PO SCH (05:59)
[2021-08-24] MEDS: METHOCARBAMOL 500 MG TABLET PO PRN ×3 (06:01→17:56)
[2021-08-24] MEDS: hydrOXYzine PAMOATE 25 MG CAPSULE (FP) PO PRN ×5 (06:01→22:54)
[2021-08-24] MEDS: NICOTINE POLACRILEX 2 MG GUM BUC PRN ×3 (06:05→14:48)
[2021-08-24] MEDS: NICOTINE 14 MG/24 HOURS TOPICAL PATCH TD SCH (10:36)
[2021-08-24] MEDS: PRENATAL VITAMINS W/ FOLIC ACID TABLET (FP) PO SCH (10:36)
[2021-08-24] MEDS: SERTRALINE HCL 50 MG TABLET (FP) PO SCH (10:36)
[2021-08-24] MEDS: ARIPiprazole 2 MG TABLET PO SCH (10:36)
[2021-08-24] MEDS: THIAMINE HCL 100 MG TABLET (FP) PO SCH (22:54)
[2021-08-24] MEDS: MELATONIN 5 MG TABLETS PO SCH (22:54)
[2021-08-25] MEDS ORDERED: methaDONE HCL 40 MG DISPERSABLE TABLET ONE (04:35)
[2021-08-25] MEDS ORDERED: methaDONE HCL 10 MG TABLET ONE (04:35)
[2021-08-25] MEDS ORDERED: chlordiazePOXIDE HCL 10 MG CAPSULE PO ONE (05:00)
[2021-08-25] MEDS: hydrOXYzine PAMOATE 25 MG CAPSULE (FP) PO PRN (07:37)
[2021-08-25] MEDS: METHOCARBAMOL 500 MG TABLET PO PRN (07:37)
[2021-08-25] MEDS: methaDONE 40 MG, methaDONE 10 MG PO SCH (07:38)
[2021-08-25 09:21] VITALS: BP 132/65; PULSE 74; TEMP 97.1
[2021-08-25] MEDS: ARIPiprazole 2 MG TABLET PO SCH (10:03)
[2021-08-25] MEDS: SERTRALINE HCL 50 MG TABLET (FP) PO SCH (10:03)
[2021-08-25] MEDS: NICOTINE 14 MG/24 HOURS TOPICAL PATCH TD SCH (10:04)
[2021-08-25] MEDS: NICOTINE POLACRILEX 2 MG GUM BUC PRN (10:05)
[2021-08-25] MEDS: PRENATAL VITAMINS W/ FOLIC ACID TABLET (FP) PO SCH (10:06)
== END 2021-08-25 10:36 | disposition home or self-care (01) | DRG 773 ==
LOC: YASAS 11:03 → UNDOADMIN 12:11 → Y3N 12:11
PROVIDERS: ADMIT Allergy & Immunology; ATTEND Surgery
PROC: HZ2ZZZZ Detoxification Services for Substance Abuse Treatment (ICD-10-PCS; principal; 2021-08-19)
DX: F10.230 Alcohol dependence with withdrawal, uncomplicated (principal); F11.20 Opioid dependence, uncomplicated; F14.20 Cocaine dependence, uncomplicated; F12.20 Cannabis dependence, uncomplicated; F17.210 Nicotine dependence, cigarettes, uncomplicated; F25.1 Schizoaffective disorder, depressive type; F19.24 Other psychoactive substance dependence with psychoactive substance-induced mood disorder; Z56.0 Unemployment, unspecified; Z59.00 Homelessness unspecified
CPT/HCPCS: 36415; 80053; 85027; 86780; 87811; C9803-CS; U0003; U0005

== ENCOUNTER 2022-03-19 16:58 | Inpatient (IN) | payer OTHER ==
[2022-03-19] MEDS ORDERED: BENZOCAINE/MENTHOL (CHLORASEPTIC ) LOZENGE MM PRN (23:42)
[2022-03-19] MEDS ORDERED: MAG HYDROX/AL HYDROX/SIMETH 30 ML UNIT-DOSE CUP PO PRN (23:42)
[2022-03-19] MEDS ORDERED: ACETAMINOPHEN 325 MG TABLET (FP) PO PRN ×2 (23:42)
[2022-03-19] MEDS ORDERED: DICYCLOMINE HCL 10 MG CAPSULE PO PRN (23:42)
[2022-03-19] MEDS ORDERED: POLYETHYLENE GLYCOL (HEALTHYLAX) 3350 17 GM PACKET PO PRN (23:42)
[2022-03-19] MEDS ORDERED: LOPERAMIDE HCL 2 MG CAPSULE PO PRN (23:42)
[2022-03-19] MEDS ORDERED: NALOXONE HCL (KLOXXADO) 8 MG SPRAY NS PRN (23:42)
[2022-03-19] MEDS ORDERED: MAGNESIUM HYDROX 2400MG/30ML ORAL SUSPENSION 30 ML CUP PO PRN (23:42)
[2022-03-19] MEDS ORDERED: ONDANSETRON *ODT* 4 MG TABLET SL PRN (23:42)
[2022-03-19] MEDS ORDERED: BISMUTH SUBSALICYLATE 524 MG/30 ML PO PRN (23:42)
[2022-03-20] MEDS ORDERED: diazePAM 5 MG TABLET PO PRN (00:02)
[2022-03-20 00:54] VITALS: BMI 29.1
[2022-03-20] MEDS: METHOCARBAMOL 500 MG TABLET PO PRN ×3 (02:27→22:22)
[2022-03-20] MEDS: diazePAM 5 MG TABLET PO SCH ×4 (05:06→22:20)
[2022-03-20] MEDS: PRENATAL VITAMINS W/ FOLIC ACID TABLET (FP) PO SCH (10:32)
[2022-03-20] MEDS: IBUPROFEN 600 MG TABLET (FP) PO PRN (15:46)
[2022-03-20] MEDS: MELATONIN 5 MG TABLETS PO SCH (22:20)
[2022-03-20] MEDS: THIAMINE HCL 100 MG TABLET (FP) PO SCH (22:20)
[2022-03-20] MEDS: NICOTINE POLACRILEX 2 MG GUM BUC PRN (22:23)
[2022-03-21] MEDS: diazePAM 5 MG TABLET PO SCH ×3 (05:08→22:10)
[2022-03-21] MEDS ORDERED: methaDONE HCL 10 MG TABLET PO ONE (08:57)
[2022-03-21] MEDS: PRENATAL VITAMINS W/ FOLIC ACID TABLET (FP) PO SCH (10:13)
[2022-03-21] MEDS: NICOTINE POLACRILEX 2 MG GUM BUC PRN ×2 (10:14→22:14)
[2022-03-21] MEDS: METHOCARBAMOL 500 MG TABLET PO PRN (10:14)
[2022-03-21] MEDS ORDERED: hydrOXYzine PAMOATE 25 MG CAPSULE (FP) PO ONE ×2 (13:04→14:12)
[2022-03-21] MEDS: THIAMINE HCL 100 MG TABLET (FP) PO SCH (22:10)
[2022-03-21] MEDS: MELATONIN 5 MG TABLETS PO SCH (22:11)
[2022-03-21] MEDS: IBUPROFEN 400 MG TABLET (FP) PO PRN (22:12)
[2022-03-22] MEDS: diazePAM 5 MG TABLET PO SCH ×2 (05:19→17:05)
[2022-03-22] MEDS: methaDONE HCL 10 MG TABLET PO SCH (05:20)
[2022-03-22] MEDS: IBUPROFEN 600 MG TABLET (FP) PO PRN (05:23)
[2022-03-22] MEDS: PRENATAL VITAMINS W/ FOLIC ACID TABLET (FP) PO SCH (09:27)
[2022-03-22] MEDS: hydrOXYzine PAMOATE 25 MG CAPSULE (FP) PO PRN ×2 (09:31→22:10)
[2022-03-22] MEDS ORDERED: ARIPiprazole 5 MG TABLET PO SCH (10:00)
[2022-03-22] MEDS ORDERED: SERTRALINE HCL 50 MG TABLET (FP) PO SCH (10:00)
[2022-03-22 15:45] LABS: BLOOD UREA NITROGEN 11.4 mg/dL (7-18); CALCIUM 8.6 mg/dL (8.5-10.1)
[2022-03-22 15:46] LABS: ALBUMIN 3.2 g/dl (3.4-5.0)
[2022-03-22 15:49] LABS: CREATININE 1.3 mg/dL (0.55-1.3)
[2022-03-22 15:50] LABS: BILIRUBIN,TOTAL 0.4 mg/dL (0.2-1); TOT PROT 6.1 g/dl (6.4-8.2)
[2022-03-22 16:08] LABS: HEMATOCRIT 40.1 % (35.4-49); HEMOGLOBIN 12.6 GM/dL (11.7-16.9); MCHC 31.4 g/dl (32.0-35.9); MEAN PLT VOLUME 8.4 fl (7.5-11.1); PLATELET COUNT 250 10^3/uL (134-434); RBC 5.73 M/mm3 (4.00-5.60); RDW 15.8 % (11.9-15.9); WHITE BLOOD COUNT 4.5 K/mm3 (4.0-10.0)
[2022-03-22] MEDS: IBUPROFEN 400 MG TABLET (FP) PO PRN (17:04)
[2022-03-22 21:30] VITALS: RESP 18
[2022-03-22] MEDS: THIAMINE HCL 100 MG TABLET (FP) PO SCH (22:06)
[2022-03-22] MEDS: MELATONIN 5 MG TABLETS PO SCH (22:06)
[2022-03-22] MEDS: METHOCARBAMOL 500 MG TABLET PO PRN (22:10)
[2022-03-22] MEDS: NICOTINE POLACRILEX 2 MG GUM BUC PRN (22:12)
[2022-03-23] MEDS: methaDONE HCL 10 MG TABLET PO SCH (05:22)
[2022-03-23] MEDS ORDERED: diazePAM 5 MG TABLET PO ONE (06:00)
[2022-03-23 09:13] VITALS: BP 116/58; PULSE 53; TEMP 97.7
== END 2022-03-23 09:35 | disposition home or self-care (01) | DRG 773 ==
LOC: YASAS 16:58 → Y6N 03-20 01:31
PROVIDERS: ADMIT Allergy & Immunology; ATTEND Family Medicine
PROC: HZ2ZZZZ Detoxification Services for Substance Abuse Treatment (ICD-10-PCS; principal; 2022-03-20)
DX: F10.230 Alcohol dependence with withdrawal, uncomplicated (principal); F11.20 Opioid dependence, uncomplicated; F14.20 Cocaine dependence, uncomplicated; F12.20 Cannabis dependence, uncomplicated; F17.210 Nicotine dependence, cigarettes, uncomplicated; F19.280 Other psychoactive substance dependence with psychoactive substance-induced anxiety disorder; F19.282 Other psychoactive substance dependence with psychoactive substance-induced sleep disorder; F25.1 Schizoaffective disorder, depressive type; F43.10 Post-traumatic stress disorder, unspecified; F41.9 Anxiety disorder, unspecified; Z62.810 Personal history of physical and sexual abuse in childhood; Z56.0 Unemployment, unspecified; Z59.00 Homelessness unspecified
CPT/HCPCS: 36415; 80053; 85027; 86780; 87811; C9803-CS; Q0162; U0003; U0005

== ENCOUNTER 2022-04-21 12:17 | Inpatient (IN) | payer OTHER ==
[2022-04-21 12:55] VITALS: BMI 28.3
[2022-04-21] MEDS ORDERED: IBUPROFEN 600 MG TABLET (FP) PO PRN (14:52)
[2022-04-21] MEDS ORDERED: BENZOCAINE/MENTHOL (CHLORASEPTIC ) LOZENGE MM PRN (14:52)
[2022-04-21] MEDS ORDERED: LOPERAMIDE HCL 2 MG CAPSULE PO PRN (14:52)
[2022-04-21] MEDS ORDERED: NALOXONE HCL (KLOXXADO) 8 MG SPRAY NS PRN (14:52)
[2022-04-21] MEDS ORDERED: MAG HYDROX/AL HYDROX/SIMETH 30 ML UNIT-DOSE CUP PO PRN (14:52)
[2022-04-21] MEDS ORDERED: BISMUTH SUBSALICYLATE 524 MG/30 ML PO PRN (14:52)
[2022-04-21] MEDS ORDERED: NICOTINE 10 MG CARTRIDGE (INHALER) IH PRN (14:52)
[2022-04-21] MEDS ORDERED: ACETAMINOPHEN 325 MG TABLET (FP) PO PRN ×2 (14:52)
[2022-04-21] MEDS ORDERED: IBUPROFEN 400 MG TABLET (FP) PO PRN (14:52)
[2022-04-21] MEDS ORDERED: POLYETHYLENE GLYCOL (HEALTHYLAX) 3350 17 GM PACKET PO PRN (14:52)
[2022-04-21] MEDS ORDERED: ONDANSETRON *ODT* 4 MG TABLET SL PRN (14:52)
[2022-04-21] MEDS ORDERED: MAGNESIUM HYDROX 2400MG/30ML ORAL SUSPENSION 30 ML CUP PO PRN (14:52)
[2022-04-21] MEDS ORDERED: chlordiazePOXIDE HCL 25 MG CAPSULE PO PRN (14:52)
[2022-04-21] MEDS ORDERED: DICYCLOMINE HCL 10 MG CAPSULE PO PRN (14:52)
[2022-04-21] MEDS: chlordiazePOXIDE HCL 25 MG CAPSULE PO SCH ×2 (17:01→22:09)
[2022-04-21] MEDS: NICOTINE 7 MG/24 HOURS TOPICAL PATCH TD SCH (17:01)
[2022-04-21] MEDS ORDERED: NICOTINE 7 MG/24 HOURS TOPICAL PATCH TD ONE (17:11)
[2022-04-21] MEDS ORDERED: chlordiazePOXIDE HCL 25 MG CAPSULE ONE (17:11)
[2022-04-21] MEDS: THIAMINE HCL 100 MG TABLET (FP) PO SCH (22:09)
[2022-04-21] MEDS: MELATONIN 5 MG TABLETS PO SCH (22:09)
[2022-04-22] MEDS: chlordiazePOXIDE HCL 25 MG CAPSULE PO SCH ×4 (05:30→22:08)
[2022-04-22] MEDS: METHOCARBAMOL 500 MG TABLET PO PRN ×2 (05:36→22:11)
[2022-04-22] MEDS: methaDONE HCL 10 MG TABLET PO SCH (10:20)
[2022-04-22] MEDS: NICOTINE 7 MG/24 HOURS TOPICAL PATCH TD SCH (10:20)
[2022-04-22] MEDS: PRENATAL VITAMINS W/ FOLIC ACID TABLET (FP) PO SCH (10:20)
[2022-04-22] MEDS: NICOTINE POLACRILEX 2 MG GUM BUC PRN ×2 (10:23→22:12)
[2022-04-22] MEDS: ARIPiprazole 5 MG TABLET PO SCH (11:11)
[2022-04-22] MEDS: SERTRALINE HCL 50 MG TABLET (FP) PO SCH (11:11)
[2022-04-22] MEDS: hydrOXYzine PAMOATE 25 MG CAPSULE (FP) PO PRN (12:08)
[2022-04-22 13:42] LABS: HEMATOCRIT 44.1 % (35.4-49); MCH 22.2 pg (25.7-33.7); MCHC 31.6 g/dl (32.0-35.9); MEAN CELL VOLUME 70.3 fl (80-96); MEAN PLT VOLUME 9.4 fl (7.5-11.1); PLATELET COUNT 195 10^3/uL (134-434); RBC 6.28 M/mm3 (4.00-5.60); RDW 15.4 % (11.9-15.9); WHITE BLOOD COUNT 4.7 K/mm3 (4.0-10.0)
[2022-04-22 14:29] LABS: ALBUMIN 3.8 g/dl (3.4-5.0); BLOOD UREA NITROGEN 15.1 mg/dL (7-18)
[2022-04-22 14:32] LABS: CREATININE 1.1 mg/dL (0.55-1.3)
[2022-04-22 14:34] LABS: BILIRUBIN,TOTAL 0.7 mg/dL (0.2-1); TOT PROT 6.9 g/dl (6.4-8.2)
[2022-04-22] MEDS: THIAMINE HCL 100 MG TABLET (FP) PO SCH (22:08)
[2022-04-22] MEDS: MELATONIN 5 MG TABLETS PO SCH (22:08)
[2022-04-23] MEDS: chlordiazePOXIDE HCL 25 MG CAPSULE PO SCH ×4 (05:57→22:32)
[2022-04-23] MEDS: methaDONE HCL 10 MG TABLET PO SCH (05:57)
[2022-04-23] MEDS: METHOCARBAMOL 500 MG TABLET PO PRN ×2 (06:00→17:33)
[2022-04-23] MEDS: PRENATAL VITAMINS W/ FOLIC ACID TABLET (FP) PO SCH (10:27)
[2022-04-23] MEDS: SERTRALINE HCL 50 MG TABLET (FP) PO SCH (10:28)
[2022-04-23] MEDS: ARIPiprazole 5 MG TABLET PO SCH (10:28)
[2022-04-23] MEDS: NICOTINE 7 MG/24 HOURS TOPICAL PATCH TD SCH (10:29)
[2022-04-23] MEDS: hydrOXYzine PAMOATE 25 MG CAPSULE (FP) PO PRN ×2 (12:38→22:35)
[2022-04-23] MEDS: THIAMINE HCL 100 MG TABLET (FP) PO SCH (22:33)
[2022-04-23] MEDS: MELATONIN 5 MG TABLETS PO SCH (22:34)
[2022-04-24] MEDS ORDERED: chlordiazePOXIDE HCL 10 MG CAPSULE PO PRN
[2022-04-24] MEDS: methaDONE HCL 10 MG TABLET PO SCH (05:26)
[2022-04-24] MEDS: chlordiazePOXIDE HCL 10 MG CAPSULE PO SCH ×4 (05:27→22:22)
[2022-04-24] MEDS: METHOCARBAMOL 500 MG TABLET PO PRN ×3 (05:28→22:25)
[2022-04-24] MEDS: SERTRALINE HCL 50 MG TABLET (FP) PO SCH (10:32)
[2022-04-24] MEDS: ARIPiprazole 5 MG TABLET PO SCH (10:32)
[2022-04-24] MEDS: PRENATAL VITAMINS W/ FOLIC ACID TABLET (FP) PO SCH (10:32)
[2022-04-24] MEDS: NICOTINE 7 MG/24 HOURS TOPICAL PATCH TD SCH (10:32)
[2022-04-24] MEDS: hydrOXYzine PAMOATE 25 MG CAPSULE (FP) PO PRN ×2 (10:33→22:25)
[2022-04-24] MEDS: MELATONIN 5 MG TABLETS PO SCH (22:22)
[2022-04-24] MEDS: THIAMINE HCL 100 MG TABLET (FP) PO SCH (22:22)
[2022-04-25] MEDS: chlordiazePOXIDE HCL 10 MG CAPSULE PO SCH ×2 (05:51→17:38)
[2022-04-25] MEDS: methaDONE HCL 10 MG TABLET PO SCH (05:51)
[2022-04-25] MEDS: METHOCARBAMOL 500 MG TABLET PO PRN ×2 (05:56→12:23)
[2022-04-25] MEDS: PRENATAL VITAMINS W/ FOLIC ACID TABLET (FP) PO SCH (10:25)
[2022-04-25] MEDS: ARIPiprazole 5 MG TABLET PO SCH (10:25)
[2022-04-25] MEDS: hydrOXYzine PAMOATE 25 MG CAPSULE (FP) PO PRN ×2 (10:25→22:34)
[2022-04-25] MEDS: SERTRALINE HCL 50 MG TABLET (FP) PO SCH (10:25)
[2022-04-25] MEDS: NICOTINE 7 MG/24 HOURS TOPICAL PATCH TD SCH (10:26)
[2022-04-25] MEDS: NICOTINE POLACRILEX 2 MG GUM BUC PRN (19:26)
[2022-04-25] MEDS: MELATONIN 5 MG TABLETS PO SCH (22:33)
[2022-04-25] MEDS: THIAMINE HCL 100 MG TABLET (FP) PO SCH (22:34)
[2022-04-26] MEDS ORDERED: chlordiazePOXIDE HCL 10 MG CAPSULE PO ONE (05:00)
[2022-04-26] MEDS: methaDONE HCL 10 MG TABLET PO SCH (05:36)
[2022-04-26] MEDS: METHOCARBAMOL 500 MG TABLET PO PRN (05:39)
[2022-04-26] MEDS: NICOTINE POLACRILEX 2 MG GUM BUC PRN (05:40)
[2022-04-26 09:47] VITALS: BP 104/72; PULSE 76; RESP 18; TEMP 97.9
[2022-04-26] MEDS: NICOTINE 7 MG/24 HOURS TOPICAL PATCH TD SCH (10:21)
[2022-04-26] MEDS: PRENATAL VITAMINS W/ FOLIC ACID TABLET (FP) PO SCH (10:21)
[2022-04-26] MEDS: ARIPiprazole 5 MG TABLET PO SCH (10:21)
[2022-04-26] MEDS: hydrOXYzine PAMOATE 25 MG CAPSULE (FP) PO PRN (10:24)
[2022-04-26] MEDS: SERTRALINE HCL 50 MG TABLET (FP) PO SCH (10:59)
== END 2022-04-26 11:23 | disposition other institution (70) | DRG 773 ==
LOC: YASAS 12:17 → Y6N 17:12
PROVIDERS: ADMIT Allergy & Immunology; ATTEND Surgery
PROC: HZ2ZZZZ Detoxification Services for Substance Abuse Treatment (ICD-10-PCS; principal; 2022-04-21)
DX: F10.230 Alcohol dependence with withdrawal, uncomplicated (principal); F11.20 Opioid dependence, uncomplicated; F14.20 Cocaine dependence, uncomplicated; F12.20 Cannabis dependence, uncomplicated; F17.213 Nicotine dependence, cigarettes, with withdrawal; F19.280 Other psychoactive substance dependence with psychoactive substance-induced anxiety disorder; F19.282 Other psychoactive substance dependence with psychoactive substance-induced sleep disorder; F25.1 Schizoaffective disorder, depressive type; Z59.00 Homelessness unspecified; Z56.0 Unemployment, unspecified
CPT/HCPCS: 36415; 80053; 85027; 86780; 87811; C9803-CS; U0003; U0005

== ENCOUNTER 2022-04-26 11:23 | Inpatient (IN) | payer OTHER ==
[2022-04-26] MEDS ORDERED: MAG HYDROX/AL HYDROX/SIMETH 30 ML UNIT-DOSE CUP PO PRN (11:48)
[2022-04-26] MEDS ORDERED: BENZOCAINE/MENTHOL (CHLORASEPTIC ) LOZENGE MM PRN (11:48)
[2022-04-26] MEDS ORDERED: guaiFENesin 200 MG/10 ML 10 ML UNIT-DOSE CUPS PO PRN (11:48)
[2022-04-26] MEDS ORDERED: IBUPROFEN 400 MG TABLET (FP) PO PRN (11:48)
[2022-04-26] MEDS ORDERED: POLYETHYLENE GLYCOL (HEALTHYLAX) 3350 17 GM PACKET PO PRN (11:48)
[2022-04-26] MEDS ORDERED: P-EPHED 60MG/TRIPROLIDI 2.5MG TABLET PO PRN (11:48)
[2022-04-26] MEDS ORDERED: ACETAMINOPHEN 325 MG TABLET (FP) PO PRN (11:48)
[2022-04-26] MEDS ORDERED: MAGNESIUM HYDROX 2400MG/30ML ORAL SUSPENSION 30 ML CUP PO PRN (11:48)
[2022-04-26] MEDS ORDERED: LOPERAMIDE HCL 2 MG CAPSULE PO PRN (11:48)
[2022-04-26] MEDS: MELATONIN 5 MG TABLETS PO SCH (21:18)
[2022-04-26] MEDS: THIAMINE HCL 100 MG TABLET (FP) PO SCH (21:18)
[2022-04-26] MEDS: hydrOXYzine PAMOATE 25 MG CAPSULE (FP) PO PRN (21:18)
[2022-04-27] MEDS: methaDONE HCL 10 MG TABLET PO SCH (06:10)
[2022-04-27] MEDS: PRENATAL VITAMINS W/ FOLIC ACID TABLET (FP) PO SCH (09:30)
[2022-04-27] MEDS: SERTRALINE HCL 50 MG TABLET (FP) PO SCH (09:30)
[2022-04-27] MEDS: NICOTINE 7 MG/24 HOURS TOPICAL PATCH TD SCH (09:30)
[2022-04-27] MEDS: ARIPiprazole 5 MG TABLET PO SCH (09:30)
[2022-04-27] MEDS: hydrOXYzine PAMOATE 25 MG CAPSULE (FP) PO PRN ×2 (09:31→21:08)
[2022-04-27] MEDS: THIAMINE HCL 100 MG TABLET (FP) PO SCH (21:08)
[2022-04-27] MEDS: MELATONIN 5 MG TABLETS PO SCH (21:08)
[2022-04-27] MEDS: NICOTINE 10 MG CARTRIDGE (INHALER) IH PRN (21:58)
[2022-04-28] MEDS: methaDONE HCL 10 MG TABLET PO SCH (06:15)
[2022-04-28] MEDS: SERTRALINE HCL 50 MG TABLET (FP) PO SCH (10:05)
[2022-04-28] MEDS: NICOTINE 7 MG/24 HOURS TOPICAL PATCH TD SCH (10:05)
[2022-04-28] MEDS: PRENATAL VITAMINS W/ FOLIC ACID TABLET (FP) PO SCH (10:05)
[2022-04-28] MEDS: ARIPiprazole 5 MG TABLET PO SCH (10:05)
[2022-04-28] MEDS: hydrOXYzine PAMOATE 25 MG CAPSULE (FP) PO PRN ×2 (10:06→21:37)
[2022-04-28] MEDS: THIAMINE HCL 100 MG TABLET (FP) PO SCH (21:36)
[2022-04-28] MEDS: MELATONIN 5 MG TABLETS PO SCH (21:36)
[2022-04-29] MEDS: methaDONE HCL 10 MG TABLET PO SCH (06:16)
[2022-04-29] MEDS: NICOTINE 7 MG/24 HOURS TOPICAL PATCH TD SCH (09:39)
[2022-04-29] MEDS: ARIPiprazole 5 MG TABLET PO SCH (09:39)
[2022-04-29] MEDS: PRENATAL VITAMINS W/ FOLIC ACID TABLET (FP) PO SCH (09:40)
[2022-04-29] MEDS: hydrOXYzine PAMOATE 25 MG CAPSULE (FP) PO PRN ×2 (09:40→21:09)
[2022-04-29] MEDS: SERTRALINE HCL 50 MG TABLET (FP) PO SCH (09:40)
[2022-04-29] MEDS: MELATONIN 5 MG TABLETS PO SCH (21:09)
[2022-04-29] MEDS: THIAMINE HCL 100 MG TABLET (FP) PO SCH (21:09)
[2022-04-30] MEDS: methaDONE HCL 10 MG TABLET PO SCH (06:30)
[2022-04-30] MEDS: SERTRALINE HCL 50 MG TABLET (FP) PO SCH (10:15)
[2022-04-30] MEDS: ARIPiprazole 5 MG TABLET PO SCH (10:17)
[2022-04-30] MEDS: PRENATAL VITAMINS W/ FOLIC ACID TABLET (FP) PO SCH (10:17)
[2022-04-30] MEDS: hydrOXYzine PAMOATE 25 MG CAPSULE (FP) PO PRN ×2 (10:19→21:19)
[2022-04-30] MEDS: NICOTINE 7 MG/24 HOURS TOPICAL PATCH TD SCH (10:19)
[2022-04-30] MEDS: NICOTINE 10 MG CARTRIDGE (INHALER) IH PRN (12:56)
[2022-04-30] MEDS: THIAMINE HCL 100 MG TABLET (FP) PO SCH (21:19)
[2022-04-30] MEDS: MELATONIN 5 MG TABLETS PO SCH (21:19)
[2022-05-01] MEDS: methaDONE HCL 10 MG TABLET PO SCH (06:06)
[2022-05-01] MEDS: hydrOXYzine PAMOATE 25 MG CAPSULE (FP) PO PRN ×2 (09:02→21:22)
[2022-05-01] MEDS: NICOTINE 7 MG/24 HOURS TOPICAL PATCH TD SCH (09:02)
[2022-05-01] MEDS: PRENATAL VITAMINS W/ FOLIC ACID TABLET (FP) PO SCH (09:02)
[2022-05-01] MEDS: SERTRALINE HCL 50 MG TABLET (FP) PO SCH (09:02)
[2022-05-01] MEDS: ARIPiprazole 5 MG TABLET PO SCH (09:02)
[2022-05-01] MEDS: THIAMINE HCL 100 MG TABLET (FP) PO SCH (21:22)
[2022-05-01] MEDS: MELATONIN 5 MG TABLETS PO SCH (21:22)
[2022-05-02] MEDS: methaDONE HCL 10 MG TABLET PO SCH (06:54)
[2022-05-02] MEDS: ARIPiprazole 5 MG TABLET PO SCH (09:58)
[2022-05-02] MEDS: NICOTINE 7 MG/24 HOURS TOPICAL PATCH TD SCH (09:59)
[2022-05-02] MEDS: hydrOXYzine PAMOATE 25 MG CAPSULE (FP) PO PRN ×2 (10:00→21:17)
[2022-05-02] MEDS: PRENATAL VITAMINS W/ FOLIC ACID TABLET (FP) PO SCH (10:00)
[2022-05-02] MEDS: SERTRALINE HCL 50 MG TABLET (FP) PO SCH (10:00)
[2022-05-02] MEDS: THIAMINE HCL 100 MG TABLET (FP) PO SCH (21:17)
[2022-05-02] MEDS: MELATONIN 5 MG TABLETS PO SCH (21:17)
[2022-05-03] MEDS: methaDONE HCL 10 MG TABLET PO SCH (06:18)
[2022-05-03 06:53] VITALS: BP 125/82; PULSE 57; RESP 20; TEMP 97.5
[2022-05-03] MEDS: SERTRALINE HCL 50 MG TABLET (FP) PO SCH (09:38)
[2022-05-03] MEDS: ARIPiprazole 5 MG TABLET PO SCH (09:38)
[2022-05-03] MEDS: NICOTINE 7 MG/24 HOURS TOPICAL PATCH TD SCH (09:38)
[2022-05-03] MEDS: hydrOXYzine PAMOATE 25 MG CAPSULE (FP) PO PRN (09:39)
[2022-05-03] MEDS: PRENATAL VITAMINS W/ FOLIC ACID TABLET (FP) PO SCH (09:39)
[2022-05-04] MEDS ORDERED: methaDONE HCL 10 MG TABLET PO SCH (06:00)
== END 2022-05-03 18:15 | disposition home or self-care (01) | DRG 772 ==
LOC: YASAS 11:23 → Y3E 11:24
PROVIDERS: ADMIT Allergy & Immunology; ATTEND Allergy & Immunology
PROC: HZ42ZZZ Group Counseling for Substance Abuse Treatment, Cognitive-Behavioral (ICD-10-PCS; principal; 2022-04-26)
DX: F11.20 Opioid dependence, uncomplicated (principal); F10.20 Alcohol dependence, uncomplicated; F14.20 Cocaine dependence, uncomplicated; F12.20 Cannabis dependence, uncomplicated; F17.210 Nicotine dependence, cigarettes, uncomplicated; F41.9 Anxiety disorder, unspecified; F32.A Depression, unspecified

== ENCOUNTER 2022-06-18 15:28 | Inpatient (IN) | payer OTHER ==
[2022-06-18 16:16] VITALS: BMI 28.9
[2022-06-18] MEDS ORDERED: DICYCLOMINE HCL 10 MG CAPSULE PO PRN (17:26)
[2022-06-18] MEDS ORDERED: BENZONATATE 200 MG CAPSULE PO PRN (17:26)
[2022-06-18] MEDS ORDERED: guaiFENesin 600 MG TABLET.ER (FP) PO PRN (17:26)
[2022-06-18] MEDS ORDERED: BISMUTH SUBSALICYLATE 524 MG/30 ML PO PRN (17:26)
[2022-06-18] MEDS ORDERED: MAG HYDROX/AL HYDROX/SIMETH 30 ML UNIT-DOSE CUP PO PRN (17:26)
[2022-06-18] MEDS ORDERED: POLYETHYLENE GLYCOL (HEALTHYLAX) 3350 17 GM PACKET PO PRN (17:26)
[2022-06-18] MEDS ORDERED: NICOTINE 10 MG CARTRIDGE (INHALER) IH PRN (17:26)
[2022-06-18] MEDS ORDERED: NALOXONE HCL (KLOXXADO) 8 MG SPRAY NS PRN (17:26)
[2022-06-18] MEDS ORDERED: NALOXONE HCL 0.4 MG/ML VIAL IM PRN (17:26)
[2022-06-18] MEDS ORDERED: LOPERAMIDE HCL 2 MG CAPSULE PO PRN (17:26)
[2022-06-18] MEDS ORDERED: ONDANSETRON *ODT* 4 MG TABLET SL PRN (17:26)
[2022-06-18] MEDS ORDERED: BENZOCAINE/MENTHOL (CHLORASEPTIC ) LOZENGE MM PRN (17:26)
[2022-06-18] MEDS ORDERED: MAGNESIUM HYDROX 2400MG/30ML ORAL SUSPENSION 30 ML CUP PO PRN (17:26)
[2022-06-18] MEDS: METHOCARBAMOL 500 MG TABLET PO PRN (18:05)
[2022-06-18] MEDS: diazePAM 5 MG TABLET PO PRN (18:05)
[2022-06-18] MEDS: THIAMINE HCL 100 MG TABLET (FP) PO SCH (22:43)
[2022-06-18] MEDS: MELATONIN 5 MG TABLETS PO SCH (22:43)
[2022-06-18] MEDS: diazePAM 5 MG TABLET PO SCH (22:44)
[2022-06-19] MEDS: diazePAM 5 MG TABLET PO SCH ×4 (05:31→22:08)
[2022-06-19] MEDS: IBUPROFEN 600 MG TABLET (FP) PO PRN ×3 (05:32→17:42)
[2022-06-19] MEDS: METHOCARBAMOL 500 MG TABLET PO PRN ×3 (05:33→17:42)
[2022-06-19 10:34] LABS: HEMOGLOBIN 12.4 GM/dL (11.7-16.9); MCH 22.2 pg (25.7-33.7); MCHC 32.7 g/dl (32.0-35.9); MEAN CELL VOLUME 67.8 fl (80-96); MEAN PLT VOLUME 9.1 fl (7.5-11.1); PLATELET COUNT 184 10^3/uL (134-434); RDW 15.5 % (11.9-15.9); WHITE BLOOD COUNT 4.4 K/mm3 (4.0-10.0)
[2022-06-19 10:36] LABS: BLOOD UREA NITROGEN 15.3 mg/dL (7-18); CALCIUM 8.6 mg/dL (8.5-10.1)
[2022-06-19 10:37] LABS: ALBUMIN 3.3 g/dl (3.4-5.0)
[2022-06-19 10:39] LABS: CREATININE 1.2 mg/dL (0.55-1.3)
[2022-06-19 10:41] LABS: BILIRUBIN,TOTAL 0.8 mg/dL (0.2-1); TOT PROT 6.2 g/dl (6.4-8.2)
[2022-06-19] MEDS: diazePAM 5 MG TABLET PO ONE (10:42)
[2022-06-19] MEDS: methaDONE HCL 10 MG TABLET PO SCH (10:44)
[2022-06-19] MEDS: PRENATAL VITAMINS W/ FOLIC ACID TABLET (FP) PO SCH (11:09)
[2022-06-19] MEDS: ACETAMINOPHEN 325 MG TABLET (FP) PO PRN (22:05)
[2022-06-19] MEDS: THIAMINE HCL 100 MG TABLET (FP) PO SCH (22:07)
[2022-06-19] MEDS: MELATONIN 5 MG TABLETS PO SCH (22:08)
[2022-06-20] MEDS: IBUPROFEN 600 MG TABLET (FP) PO PRN ×2 (05:44→13:12)
[2022-06-20] MEDS: methaDONE HCL 10 MG TABLET PO SCH (05:45)
[2022-06-20] MEDS: METHOCARBAMOL 500 MG TABLET PO PRN ×3 (05:45→20:21)
[2022-06-20] MEDS: diazePAM 5 MG TABLET PO SCH ×3 (05:45→22:23)
[2022-06-20] MEDS: ARIPiprazole 5 MG TABLET PO SCH (10:32)
[2022-06-20] MEDS: SERTRALINE HCL 50 MG TABLET (FP) PO SCH (10:32)
[2022-06-20] MEDS: PRENATAL VITAMINS W/ FOLIC ACID TABLET (FP) PO SCH (10:32)
[2022-06-20] MEDS: hydrOXYzine PAMOATE 25 MG CAPSULE (FP) PO PRN ×2 (10:51→17:34)
[2022-06-20] MEDS: diazePAM 5 MG TABLET PO PRN (17:33)
[2022-06-20] MEDS: MELATONIN 5 MG TABLETS PO SCH (22:22)
[2022-06-20] MEDS: THIAMINE HCL 100 MG TABLET (FP) PO SCH (22:22)
[2022-06-20] MEDS: ACETAMINOPHEN 325 MG TABLET (FP) PO PRN (22:24)
[2022-06-21] MEDS: METHOCARBAMOL 500 MG TABLET PO PRN ×3 (05:22→17:04)
[2022-06-21] MEDS: IBUPROFEN 400 MG TABLET (FP) PO PRN ×3 (05:22→22:26)
[2022-06-21] MEDS: methaDONE HCL 10 MG TABLET PO SCH (05:23)
[2022-06-21] MEDS: diazePAM 5 MG TABLET PO SCH ×2 (05:23→17:02)
[2022-06-21] MEDS: ARIPiprazole 5 MG TABLET PO SCH (10:05)
[2022-06-21] MEDS: PRENATAL VITAMINS W/ FOLIC ACID TABLET (FP) PO SCH (10:05)
[2022-06-21] MEDS: SERTRALINE HCL 50 MG TABLET (FP) PO SCH (10:06)
[2022-06-21] MEDS: hydrOXYzine PAMOATE 25 MG CAPSULE (FP) PO PRN ×2 (10:31→22:25)
[2022-06-21 11:17] LABS: GLUCOSE,FASTING 91 mg/dL (74-106)
[2022-06-21 11:20] LABS: SGPT/ALT 74 U/L (13-61)
[2022-06-21] MEDS: ACETAMINOPHEN 325 MG TABLET (FP) PO PRN (13:42)
[2022-06-21] MEDS: diazePAM 5 MG TABLET PO PRN (13:44)
[2022-06-21] MEDS: NICOTINE POLACRILEX 2 MG GUM BUC PRN ×2 (20:02→22:28)
[2022-06-21] MEDS: THIAMINE HCL 100 MG TABLET (FP) PO SCH (22:24)
[2022-06-21] MEDS: MELATONIN 5 MG TABLETS PO SCH (22:24)
[2022-06-22] MEDS: METHOCARBAMOL 500 MG TABLET PO PRN ×2 (00:34→10:07)
[2022-06-22] MEDS: diazePAM 5 MG TABLET PO ONE (05:37)
[2022-06-22] MEDS: methaDONE HCL 10 MG TABLET PO SCH (05:37)
[2022-06-22] MEDS: IBUPROFEN 400 MG TABLET (FP) PO PRN (05:39)
[2022-06-22 09:18] VITALS: BP 133/63; PULSE 64; RESP 17; TEMP 98
[2022-06-22] MEDS: PRENATAL VITAMINS W/ FOLIC ACID TABLET (FP) PO SCH (10:06)
[2022-06-22] MEDS: SERTRALINE HCL 50 MG TABLET (FP) PO SCH (10:06)
[2022-06-22] MEDS: ARIPiprazole 5 MG TABLET PO SCH (10:06)
[2022-06-22] MEDS: hydrOXYzine PAMOATE 25 MG CAPSULE (FP) PO PRN (10:07)
[2022-06-22] MEDS: ACETAMINOPHEN 325 MG TABLET (FP) PO PRN (10:07)
== END 2022-06-22 12:00 | disposition home or self-care (01) | DRG 773 ==
LOC: YASAS 15:28 → Y3N 17:14
PROVIDERS: ADMIT Allergy & Immunology; ATTEND Surgery
PROC: HZ2ZZZZ Detoxification Services for Substance Abuse Treatment (ICD-10-PCS; principal; 2022-06-18)
DX: F10.230 Alcohol dependence with withdrawal, uncomplicated (principal); F11.20 Opioid dependence, uncomplicated; F13.20 Sedative, hypnotic or anxiolytic dependence, uncomplicated; F14.20 Cocaine dependence, uncomplicated; F12.20 Cannabis dependence, uncomplicated; F17.210 Nicotine dependence, cigarettes, uncomplicated; F25.1 Schizoaffective disorder, depressive type; F19.24 Other psychoactive substance dependence with psychoactive substance-induced mood disorder; F41.9 Anxiety disorder, unspecified; F32.A Depression, unspecified; R73.9 Hyperglycemia, unspecified; R74.01 Elevation of levels of liver transaminase levels
CPT/HCPCS: 36415; 80053; 82947; 83036; 84460; 85027; 86780; 87811; C9803-CS; U0003; U0005

== ENCOUNTER 2022-07-27 13:05 | Inpatient (IN) | payer OTHER ==
[2022-07-27 13:16] VITALS: BMI 27.4
[2022-07-27] MEDS ORDERED: guaiFENesin 600 MG TABLET.ER (FP) PO PRN (14:49)
[2022-07-27] MEDS ORDERED: NALOXONE HCL (KLOXXADO) 8 MG SPRAY NS PRN (14:49)
[2022-07-27] MEDS ORDERED: MAGNESIUM HYDROX 2400MG/30ML ORAL SUSPENSION 30 ML CUP PO PRN (14:49)
[2022-07-27] MEDS ORDERED: BISMUTH SUBSALICYLATE 262 MG/15 ML BTL PO PRN (14:49)
[2022-07-27] MEDS ORDERED: DICYCLOMINE HCL 10 MG CAPSULE PO PRN (14:49)
[2022-07-27] MEDS ORDERED: POLYETHYLENE GLYCOL (HEALTHYLAX) 3350 17 GM PACKET PO PRN (14:49)
[2022-07-27] MEDS ORDERED: LORazepam 1 MG TABLET PO PRN (14:49)
[2022-07-27] MEDS ORDERED: BENZONATATE 200 MG CAPSULE PO PRN (14:49)
[2022-07-27] MEDS ORDERED: BENZOCAINE/MENTHOL (CHLORASEPTIC ) LOZENGE MM PRN (14:49)
[2022-07-27] MEDS ORDERED: ACETAMINOPHEN 325 MG TABLET (FP) PO PRN (14:49)
[2022-07-27] MEDS ORDERED: NALOXONE HCL 0.4 MG/ML VIAL IM PRN (14:49)
[2022-07-27] MEDS ORDERED: LOPERAMIDE HCL 2 MG CAPSULE PO PRN (14:49)
[2022-07-27] MEDS ORDERED: MAG HYDROX/AL HYDROX/SIMETH 30 ML UNIT-DOSE CUP PO PRN (14:49)
[2022-07-27] MEDS ORDERED: ONDANSETRON *ODT* 4 MG TABLET SL PRN (14:49)
[2022-07-27] MEDS: PRENATAL VITAMINS W/ FOLIC ACID TABLET (FP) PO SCH (15:51)
[2022-07-27] MEDS: hydrOXYzine PAMOATE 25 MG CAPSULE (FP) PO PRN (15:56)
[2022-07-27] MEDS: METHOCARBAMOL 500 MG TABLET PO PRN (15:56)
[2022-07-27] MEDS: LORazepam 2 MG TABLET PO SCH ×2 (17:22→22:34)
[2022-07-27] MEDS: IBUPROFEN 600 MG TABLET (FP) PO PRN (17:22)
[2022-07-27] MEDS: MELATONIN 5 MG TABLETS PO SCH (22:34)
[2022-07-27] MEDS: THIAMINE HCL 100 MG TABLET (FP) PO SCH (22:34)
[2022-07-28] MEDS: LORazepam 2 MG TABLET PO SCH ×4 (05:25→22:33)
[2022-07-28] MEDS: METHOCARBAMOL 500 MG TABLET PO PRN ×2 (05:27→17:47)
[2022-07-28] MEDS: hydrOXYzine PAMOATE 25 MG CAPSULE (FP) PO PRN ×2 (05:27→22:40)
[2022-07-28] MEDS: ARIPiprazole 5 MG TABLET PO SCH (10:09)
[2022-07-28] MEDS: PRENATAL VITAMINS W/ FOLIC ACID TABLET (FP) PO SCH (10:09)
[2022-07-28] MEDS: NICOTINE 7 MG/24 HOURS TOPICAL PATCH TD SCH (10:09)
[2022-07-28] MEDS: SERTRALINE HCL 50 MG TABLET (FP) PO SCH (10:10)
[2022-07-28] MEDS: methaDONE HCL 10 MG TABLET PO SCH (10:11)
[2022-07-28 11:41] LABS: HEMATOCRIT 40.2 % (35.4-49); MCH 22.4 pg (25.7-33.7); MCHC 32.4 g/dl (32.0-35.9); PLATELET COUNT 186 10^3/uL (134-434); RBC 5.82 M/mm3 (4.00-5.60); RDW 15.7 % (11.9-15.9); WHITE BLOOD COUNT 4.3 K/mm3 (4.0-10.0)
[2022-07-28 11:53] LABS: POTASSIUM 4.1 mmol/L (3.5-5.1)
[2022-07-28 12:00] LABS: CALCIUM 9.4 mg/dL (8.5-10.1)
[2022-07-28 12:03] LABS: CREATININE 1.1 mg/dL (0.55-1.3)
[2022-07-28 12:04] LABS: ALBUMIN 3.6 g/dl (3.4-5.0); TOT PROT 6.7 g/dl (6.4-8.2)
[2022-07-28 12:05] LABS: BLOOD UREA NITROGEN 12.7 mg/dL (7-18)
[2022-07-28 12:09] LABS: BILIRUBIN,TOTAL 0.6 mg/dL (0.2-1)
[2022-07-28] MEDS: THIAMINE HCL 100 MG TABLET (FP) PO SCH (22:32)
[2022-07-28] MEDS: MELATONIN 5 MG TABLETS PO SCH (22:33)
[2022-07-28] MEDS: LACTULOSE 20 GM/30 ML UDC (FOR ORAL USE ONLY) PO SCH (22:35)
[2022-07-28] MEDS: IBUPROFEN 600 MG TABLET (FP) PO PRN (22:40)
[2022-07-29] MEDS: LORazepam 1 MG TABLET PO SCH ×4 (05:35→22:36)
[2022-07-29] MEDS: methaDONE HCL 10 MG TABLET PO SCH (05:36)
[2022-07-29] MEDS: LACTULOSE 20 GM/30 ML UDC (FOR ORAL USE ONLY) PO SCH ×3 (05:44→22:37)
[2022-07-29] MEDS: METHOCARBAMOL 500 MG TABLET PO PRN ×2 (10:28→22:41)
[2022-07-29] MEDS: ARIPiprazole 5 MG TABLET PO SCH (10:28)
[2022-07-29] MEDS: PRENATAL VITAMINS W/ FOLIC ACID TABLET (FP) PO SCH (10:28)
[2022-07-29] MEDS: SERTRALINE HCL 50 MG TABLET (FP) PO SCH (10:28)
[2022-07-29] MEDS: hydrOXYzine PAMOATE 25 MG CAPSULE (FP) PO PRN ×2 (10:29→18:13)
[2022-07-29] MEDS: IBUPROFEN 600 MG TABLET (FP) PO PRN ×2 (10:30→17:43)
[2022-07-29] MEDS: NICOTINE 7 MG/24 HOURS TOPICAL PATCH TD SCH (10:32)
[2022-07-29] MEDS: THIAMINE HCL 100 MG TABLET (FP) PO SCH (22:36)
[2022-07-29] MEDS: MELATONIN 5 MG TABLETS PO SCH (22:39)
[2022-07-30] MEDS ORDERED: LORazepam 0.5 MG TABLET PO PRN
[2022-07-30] MEDS: methaDONE HCL 10 MG TABLET PO SCH (05:24)
[2022-07-30] MEDS: LORazepam 0.5 MG TABLET PO SCH ×4 (05:24→22:20)
[2022-07-30] MEDS: LACTULOSE 20 GM/30 ML UDC (FOR ORAL USE ONLY) PO SCH ×3 (06:31→22:20)
[2022-07-30 09:17] VITALS: RESP 18
[2022-07-30] MEDS: NICOTINE 7 MG/24 HOURS TOPICAL PATCH TD SCH (10:26)
[2022-07-30] MEDS: SERTRALINE HCL 50 MG TABLET (FP) PO SCH (10:27)
[2022-07-30] MEDS: hydrOXYzine PAMOATE 25 MG CAPSULE (FP) PO PRN ×2 (10:27→17:29)
[2022-07-30] MEDS: METHOCARBAMOL 500 MG TABLET PO PRN ×2 (10:27→17:28)
[2022-07-30] MEDS: PRENATAL VITAMINS W/ FOLIC ACID TABLET (FP) PO SCH (10:27)
[2022-07-30] MEDS: ARIPiprazole 5 MG TABLET PO SCH (10:28)
[2022-07-30] MEDS: NICOTINE POLACRILEX 4 MG GUM BUC PRN (17:30)
[2022-07-30] MEDS: MELATONIN 5 MG TABLETS PO SCH (22:20)
[2022-07-30] MEDS: THIAMINE HCL 100 MG TABLET (FP) PO SCH (22:20)
[2022-07-30] MEDS: IBUPROFEN 400 MG TABLET (FP) PO PRN (22:24)
[2022-07-31] MEDS ORDERED: LORazepam 0.5 MG TABLET PO ONE (05:00)
[2022-07-31] MEDS: LACTULOSE 20 GM/30 ML UDC (FOR ORAL USE ONLY) PO SCH (05:30)
[2022-07-31] MEDS: methaDONE HCL 10 MG TABLET PO SCH (05:30)
[2022-07-31] MEDS: IBUPROFEN 400 MG TABLET (FP) PO PRN (05:34)
[2022-07-31] MEDS: METHOCARBAMOL 500 MG TABLET PO PRN (05:35)
[2022-07-31 09:28] VITALS: BP 110/77; PULSE 72; TEMP 97.5
[2022-07-31] MEDS: SERTRALINE HCL 50 MG TABLET (FP) PO SCH (09:30)
[2022-07-31] MEDS: ARIPiprazole 5 MG TABLET PO SCH (09:30)
[2022-07-31] MEDS: PRENATAL VITAMINS W/ FOLIC ACID TABLET (FP) PO SCH (09:30)
[2022-07-31] MEDS: NICOTINE 7 MG/24 HOURS TOPICAL PATCH TD SCH (09:31)
[2022-07-31] MEDS: NICOTINE POLACRILEX 4 MG GUM BUC PRN (09:33)
== END 2022-07-31 09:36 | disposition home or self-care (01) | DRG 773 ==
LOC: YASAS 13:05 → Y6N 15:11
PROVIDERS: ADMIT Allergy & Immunology; ATTEND Surgery
PROC: HZ2ZZZZ Detoxification Services for Substance Abuse Treatment (ICD-10-PCS; principal; 2022-07-27)
DX: F10.230 Alcohol dependence with withdrawal, uncomplicated (principal); F13.20 Sedative, hypnotic or anxiolytic dependence, uncomplicated; F11.20 Opioid dependence, uncomplicated; F14.10 Cocaine abuse, uncomplicated; F17.210 Nicotine dependence, cigarettes, uncomplicated; F19.280 Other psychoactive substance dependence with psychoactive substance-induced anxiety disorder; F19.282 Other psychoactive substance dependence with psychoactive substance-induced sleep disorder; F19.24 Other psychoactive substance dependence with psychoactive substance-induced mood disorder; F25.1 Schizoaffective disorder, depressive type; R79.89 Other specified abnormal findings of blood chemistry; Z62.810 Personal history of physical and sexual abuse in childhood
CPT/HCPCS: 36415; 80053; 82140; 85027; 86780; 87635; C9803-CS; U0003; U0005

== ENCOUNTER 2022-09-06 11:43 | Inpatient (IN) | payer OTHER ==
[2022-09-06 12:37] VITALS: BMI 29.6
[2022-09-06] MEDS ORDERED: LOPERAMIDE HCL 2 MG CAPSULE PO PRN (14:03)
[2022-09-06] MEDS ORDERED: BISMUTH SUBSALICYLATE 262 MG/15 ML BTL PO PRN (14:03)
[2022-09-06] MEDS ORDERED: ACETAMINOPHEN 325 MG TABLET (FP) PO PRN (14:03)
[2022-09-06] MEDS ORDERED: MAGNESIUM HYDROX 2400MG/30ML ORAL SUSPENSION 30 ML CUP PO PRN (14:03)
[2022-09-06] MEDS ORDERED: POLYETHYLENE GLYCOL (HEALTHYLAX) 3350 17 GM PACKET PO PRN (14:03)
[2022-09-06] MEDS ORDERED: BENZONATATE 200 MG CAPSULE PO PRN (14:03)
[2022-09-06] MEDS ORDERED: NICOTINE 10 MG CARTRIDGE (INHALER) IH PRN (14:03)
[2022-09-06] MEDS ORDERED: NALOXONE HCL 0.4 MG/ML VIAL IM PRN (14:03)
[2022-09-06] MEDS ORDERED: IBUPROFEN 400 MG TABLET (FP) PO PRN (14:03)
[2022-09-06] MEDS ORDERED: NALOXONE HCL (KLOXXADO) 8 MG SPRAY NS PRN (14:03)
[2022-09-06] MEDS ORDERED: ONDANSETRON *ODT* 4 MG TABLET SL PRN (14:03)
[2022-09-06] MEDS ORDERED: DICYCLOMINE HCL 10 MG CAPSULE PO PRN (14:03)
[2022-09-06] MEDS ORDERED: MAG HYDROX/AL HYDROX/SIMETH 30 ML UNIT-DOSE CUP PO PRN (14:03)
[2022-09-06] MEDS ORDERED: BENZOCAINE/MENTHOL (CHLORASEPTIC ) LOZENGE MM PRN (14:03)
[2022-09-06] MEDS ORDERED: guaiFENesin 600 MG TABLET.ER (FP) PO PRN (14:03)
[2022-09-06] MEDS: METHOCARBAMOL 500 MG TABLET PO PRN (16:53)
[2022-09-06] MEDS: hydrOXYzine PAMOATE 25 MG CAPSULE (FP) PO PRN (16:53)
[2022-09-06] MEDS: THIAMINE HCL 100 MG TABLET (FP) PO SCH (22:11)
[2022-09-06] MEDS: MELATONIN 5 MG TABLETS PO SCH (22:12)
[2022-09-07] MEDS: hydrOXYzine PAMOATE 25 MG CAPSULE (FP) PO PRN ×2 (05:17→14:06)
[2022-09-07] MEDS: methaDONE HCL 10 MG TABLET PO SCH (05:17)
[2022-09-07] MEDS: IBUPROFEN 600 MG TABLET (FP) PO PRN ×3 (05:20→22:13)
[2022-09-07] MEDS ORDERED: chlordiazePOXIDE HCL 25 MG CAPSULE PO PRN (09:07)
[2022-09-07] MEDS: SERTRALINE HCL 50 MG TABLET (FP) PO SCH (10:17)
[2022-09-07] MEDS: PRENATAL VITAMINS W/ FOLIC ACID TABLET (FP) PO SCH (10:17)
[2022-09-07] MEDS: ARIPiprazole 5 MG TABLET PO SCH (10:17)
[2022-09-07] MEDS: METHOCARBAMOL 500 MG TABLET PO PRN (10:17)
[2022-09-07] MEDS: chlordiazePOXIDE HCL 25 MG CAPSULE PO SCH ×3 (10:18→22:11)
[2022-09-07 12:22] LABS: HEMATOCRIT 42.2 % (35.4-49); HEMOGLOBIN 12.8 GM/dL (11.7-16.9); MCH 21.5 pg (25.7-33.7); MCHC 30.4 g/dl (32.0-35.9); MEAN CELL VOLUME 70.6 fl (80-96); MEAN PLT VOLUME 9.6 fl (7.5-11.1); PLATELET COUNT 167 10^3/uL (134-434); POTASSIUM 3.8 mmol/L (3.5-5.1); RBC 5.98 M/mm3 (4.00-5.60); RDW 14.9 % (11.9-15.9); WHITE BLOOD COUNT 5.5 K/mm3 (4.0-10.0)
[2022-09-07 12:25] LABS: CALCIUM 9.1 mg/dL (8.5-10.1)
[2022-09-07 12:26] LABS: ALBUMIN 3.8 g/dl (3.4-5.0); BLOOD UREA NITROGEN 16.2 mg/dL (7-18)
[2022-09-07 12:29] LABS: CREATININE 1.3 mg/dL (0.55-1.3)
[2022-09-07 12:30] LABS: BILIRUBIN,TOTAL 0.5 mg/dL (0.2-1)
[2022-09-07 12:31] LABS: TOT PROT 7.1 g/dl (6.4-8.2)
[2022-09-07] MEDS: NICOTINE POLACRILEX 2 MG GUM BUC PRN ×3 (14:09→22:12)
[2022-09-07] MEDS: THIAMINE HCL 100 MG TABLET (FP) PO SCH (22:10)
[2022-09-07] MEDS: MELATONIN 5 MG TABLETS PO SCH (22:12)
[2022-09-08] MEDS: chlordiazePOXIDE HCL 25 MG CAPSULE PO SCH ×4 (05:09→21:59)
[2022-09-08] MEDS: methaDONE HCL 10 MG TABLET PO SCH (05:09)
[2022-09-08] MEDS: METHOCARBAMOL 500 MG TABLET PO PRN (10:14)
[2022-09-08] MEDS: hydrOXYzine PAMOATE 25 MG CAPSULE (FP) PO PRN (10:14)
[2022-09-08] MEDS: SERTRALINE HCL 50 MG TABLET (FP) PO SCH (10:15)
[2022-09-08] MEDS: PRENATAL VITAMINS W/ FOLIC ACID TABLET (FP) PO SCH (10:15)
[2022-09-08] MEDS: ARIPiprazole 5 MG TABLET PO SCH (10:15)
[2022-09-08] MEDS: IBUPROFEN 600 MG TABLET (FP) PO PRN (10:16)
[2022-09-08] MEDS: NICOTINE POLACRILEX 2 MG GUM BUC PRN (10:17)
[2022-09-08] MEDS: THIAMINE HCL 100 MG TABLET (FP) PO SCH (21:59)
[2022-09-08] MEDS: MELATONIN 5 MG TABLETS PO SCH (22:01)
[2022-09-09] MEDS: methaDONE HCL 10 MG TABLET PO SCH (05:41)
[2022-09-09] MEDS: chlordiazePOXIDE HCL 25 MG CAPSULE PO SCH ×4 (05:42→22:34)
[2022-09-09] MEDS: hydrOXYzine PAMOATE 25 MG CAPSULE (FP) PO PRN ×2 (05:44→13:46)
[2022-09-09] MEDS: METHOCARBAMOL 500 MG TABLET PO PRN ×2 (10:21→17:18)
[2022-09-09] MEDS: SERTRALINE HCL 50 MG TABLET (FP) PO SCH (10:21)
[2022-09-09] MEDS: ARIPiprazole 5 MG TABLET PO SCH (10:21)
[2022-09-09] MEDS: PRENATAL VITAMINS W/ FOLIC ACID TABLET (FP) PO SCH (10:21)
[2022-09-09] MEDS: IBUPROFEN 600 MG TABLET (FP) PO PRN ×2 (10:24→17:19)
[2022-09-09] MEDS: THIAMINE HCL 100 MG TABLET (FP) PO SCH (22:34)
[2022-09-09] MEDS: MELATONIN 5 MG TABLETS PO SCH (22:35)
[2022-09-10] MEDS ORDERED: chlordiazePOXIDE HCL 10 MG CAPSULE PO PRN
[2022-09-10] MEDS: chlordiazePOXIDE HCL 10 MG CAPSULE PO SCH ×3 (05:25→17:10)
[2022-09-10] MEDS: methaDONE HCL 10 MG TABLET PO SCH (05:25)
[2022-09-10] MEDS: METHOCARBAMOL 500 MG TABLET PO PRN (05:27)
[2022-09-10] MEDS: hydrOXYzine PAMOATE 25 MG CAPSULE (FP) PO PRN ×2 (09:19→17:12)
[2022-09-10] MEDS: PRENATAL VITAMINS W/ FOLIC ACID TABLET (FP) PO SCH (10:14)
[2022-09-10] MEDS: ARIPiprazole 5 MG TABLET PO SCH (10:14)
[2022-09-10] MEDS: SERTRALINE HCL 50 MG TABLET (FP) PO SCH (10:14)
[2022-09-10 13:15] VITALS: RESP 17
[2022-09-10 17:28] VITALS: BP 115/78; PULSE 67; TEMP 97.7
[2022-09-11] MEDS ORDERED: chlordiazePOXIDE HCL 10 MG CAPSULE PO SCH (05:00)
[2022-09-12] MEDS ORDERED: chlordiazePOXIDE HCL 10 MG CAPSULE PO ONE (05:00)
== END 2022-09-10 18:04 | disposition left against medical advice (07) | DRG 770 ==
LOC: YASAS 11:43 → Y3N 15:01 → Y6N 15:04
PROVIDERS: ADMIT Allergy & Immunology; ATTEND Surgery
PROC: HZ2ZZZZ Detoxification Services for Substance Abuse Treatment (ICD-10-PCS; principal; 2022-09-06)
DX: F10.230 Alcohol dependence with withdrawal, uncomplicated (principal); F14.20 Cocaine dependence, uncomplicated; F12.20 Cannabis dependence, uncomplicated; F17.210 Nicotine dependence, cigarettes, uncomplicated; F19.282 Other psychoactive substance dependence with psychoactive substance-induced sleep disorder; F19.280 Other psychoactive substance dependence with psychoactive substance-induced anxiety disorder; F43.10 Post-traumatic stress disorder, unspecified; Z62.810 Personal history of physical and sexual abuse in childhood; Z56.0 Unemployment, unspecified; Z59.00 Homelessness unspecified
CPT/HCPCS: 36415; 80053; 85027; 86780; 87635; 87811

== ENCOUNTER 2022-10-04 11:36 | Inpatient (IN) | payer OTHER ==
[2022-10-04 12:06] VITALS: BMI 29.2
[2022-10-04] MEDS ORDERED: BISMUTH SUBSALICYLATE 524 MG/30 ML PO PRN (13:22)
[2022-10-04] MEDS ORDERED: MAGNESIUM HYDROX 2400MG/30ML ORAL SUSPENSION 30 ML CUP PO PRN (13:22)
[2022-10-04] MEDS ORDERED: NALOXONE HCL (KLOXXADO) 8 MG SPRAY NS PRN (13:22)
[2022-10-04] MEDS ORDERED: LOPERAMIDE HCL 2 MG CAPSULE PO PRN (13:22)
[2022-10-04] MEDS ORDERED: POLYETHYLENE GLYCOL (HEALTHYLAX) 3350 17 GM PACKET PO PRN (13:22)
[2022-10-04] MEDS ORDERED: BENZONATATE 200 MG CAPSULE PO PRN (13:22)
[2022-10-04] MEDS ORDERED: BENZOCAINE/MENTHOL (CHLORASEPTIC ) LOZENGE MM PRN (13:22)
[2022-10-04] MEDS ORDERED: NALOXONE HCL 0.4 MG/ML VIAL IM PRN (13:22)
[2022-10-04] MEDS ORDERED: IBUPROFEN 600 MG TABLET (FP) PO PRN (13:22)
[2022-10-04] MEDS ORDERED: IBUPROFEN 400 MG TABLET (FP) PO PRN (13:22)
[2022-10-04] MEDS ORDERED: guaiFENesin 600 MG TABLET.ER (FP) PO PRN (13:22)
[2022-10-04] MEDS ORDERED: MAG HYDROX/AL HYDROX/SIMETH 30 ML UNIT-DOSE CUP PO PRN (13:22)
[2022-10-04] MEDS ORDERED: ONDANSETRON *ODT* 4 MG TABLET SL PRN (13:22)
[2022-10-04] MEDS ORDERED: ACETAMINOPHEN 325 MG TABLET (FP) PO PRN (13:22)
[2022-10-04] MEDS ORDERED: DICYCLOMINE HCL 10 MG CAPSULE PO PRN (13:22)
[2022-10-04] MEDS ORDERED: PRENATAL VITAMINS W/ FOLIC ACID TABLET (FP) PO ONE (15:42)
[2022-10-04] MEDS: PRENATAL VITAMINS W/ FOLIC ACID TABLET (FP) PO SCH (15:45)
[2022-10-04] MEDS: hydrOXYzine PAMOATE 25 MG CAPSULE (FP) PO PRN ×2 (17:30→22:12)
[2022-10-04] MEDS: METHOCARBAMOL 500 MG TABLET PO PRN ×2 (17:30→22:34)
[2022-10-04] MEDS: MELATONIN 5 MG TABLETS PO SCH (22:11)
[2022-10-04] MEDS: THIAMINE HCL 100 MG TABLET (FP) PO SCH (22:11)
[2022-10-05] MEDS: methaDONE HCL 10 MG TABLET PO SCH (08:44)
[2022-10-05] MEDS ORDERED: LORazepam 1 MG TABLET PO PRN (10:24)
[2022-10-05] MEDS: ARIPiprazole 5 MG TABLET PO SCH (10:41)
[2022-10-05] MEDS: PRENATAL VITAMINS W/ FOLIC ACID TABLET (FP) PO SCH (10:41)
[2022-10-05] MEDS: SERTRALINE HCL 50 MG TABLET (FP) PO SCH (10:41)
[2022-10-05] MEDS: hydrOXYzine PAMOATE 25 MG CAPSULE (FP) PO PRN ×2 (10:44→22:15)
[2022-10-05 11:29] LABS: POTASSIUM 4.2 mmol/L (3.5-5.1)
[2022-10-05 11:30] LABS: HEMOGLOBIN 13.6 GM/dL (11.7-16.9); MCH 21.8 pg (25.7-33.7); MEAN CELL VOLUME 70.3 fl (80-96); MEAN PLT VOLUME 9.7 fl (7.5-11.1); PLATELET COUNT 216 10^3/uL (134-434); RBC 6.26 M/mm3 (4.00-5.60); RDW 14.9 % (11.9-15.9); WHITE BLOOD COUNT 4.3 K/mm3 (4.0-10.0)
[2022-10-05 11:33] LABS: BLOOD UREA NITROGEN 11.4 mg/dL (7-18)
[2022-10-05 11:35] LABS: CALCIUM 9.5 mg/dL (8.5-10.1)
[2022-10-05 11:36] LABS: CREATININE 1.3 mg/dL (0.55-1.3)
[2022-10-05 11:37] LABS: BILIRUBIN,TOTAL 0.6 mg/dL (0.2-1); TOT PROT 7.3 g/dl (6.4-8.2)
[2022-10-05] MEDS: LORazepam 1 MG TABLET PO SCH ×2 (17:19→22:15)
[2022-10-05] MEDS: METHOCARBAMOL 500 MG TABLET PO PRN (17:38)
[2022-10-05] MEDS: THIAMINE HCL 100 MG TABLET (FP) PO SCH (22:15)
[2022-10-05] MEDS: MELATONIN 5 MG TABLETS PO SCH (22:16)
[2022-10-06] MEDS: METHOCARBAMOL 500 MG TABLET PO PRN ×3 (00:25→17:16)
[2022-10-06] MEDS: LORazepam 0.5 MG TABLET PO SCH ×4 (05:15→22:11)
[2022-10-06] MEDS: methaDONE HCL 10 MG TABLET PO SCH (05:16)
[2022-10-06] MEDS: PRENATAL VITAMINS W/ FOLIC ACID TABLET (FP) PO SCH (10:12)
[2022-10-06] MEDS: hydrOXYzine PAMOATE 25 MG CAPSULE (FP) PO PRN ×2 (10:13→22:11)
[2022-10-06] MEDS: ARIPiprazole 5 MG TABLET PO SCH (10:13)
[2022-10-06] MEDS: SERTRALINE HCL 50 MG TABLET (FP) PO SCH (10:13)
[2022-10-06] MEDS ORDERED: NICOTINE POLACRILEX 4 MG GUM BUC PRN (15:10)
[2022-10-06] MEDS: THIAMINE HCL 100 MG TABLET (FP) PO SCH (22:11)
[2022-10-06] MEDS: MELATONIN 5 MG TABLETS PO SCH (22:11)
[2022-10-07] MEDS ORDERED: LORazepam 0.5 MG TABLET PO ONE (05:00)
[2022-10-07] MEDS: methaDONE HCL 10 MG TABLET PO SCH (05:51)
[2022-10-07] MEDS: hydrOXYzine PAMOATE 25 MG CAPSULE (FP) PO PRN (05:52)
[2022-10-07 09:12] VITALS: BP 129/83; PULSE 56; RESP 17; TEMP 981
[2022-10-07] MEDS: PRENATAL VITAMINS W/ FOLIC ACID TABLET (FP) PO SCH (10:09)
[2022-10-07] MEDS: SERTRALINE HCL 50 MG TABLET (FP) PO SCH (10:09)
[2022-10-07] MEDS: METHOCARBAMOL 500 MG TABLET PO PRN (10:10)
[2022-10-07] MEDS: ARIPiprazole 5 MG TABLET PO SCH (10:10)
== END 2022-10-07 10:13 | disposition home or self-care (01) | DRG 773 ==
LOC: YASAS 11:36 → Y6N 15:40
PROVIDERS: ADMIT Allergy & Immunology; ATTEND Allergy & Immunology
PROC: HZ2ZZZZ Detoxification Services for Substance Abuse Treatment (ICD-10-PCS; principal; 2022-10-04)
DX: F10.230 Alcohol dependence with withdrawal, uncomplicated (principal); F11.20 Opioid dependence, uncomplicated; F14.20 Cocaine dependence, uncomplicated; F12.20 Cannabis dependence, uncomplicated; F17.210 Nicotine dependence, cigarettes, uncomplicated; F25.1 Schizoaffective disorder, depressive type; F19.280 Other psychoactive substance dependence with psychoactive substance-induced anxiety disorder; F19.282 Other psychoactive substance dependence with psychoactive substance-induced sleep disorder; F19.24 Other psychoactive substance dependence with psychoactive substance-induced mood disorder; F43.10 Post-traumatic stress disorder, unspecified; Z56.0 Unemployment, unspecified; Z59.00 Homelessness unspecified
CPT/HCPCS: 36415; 80053; 85027; 86780; 87635; 87811

== ENCOUNTER 2022-11-03 16:16 | Inpatient (IN) | payer OTHER ==
[2022-11-03 20:21] VITALS: BMI 29.7
[2022-11-04] MEDS ORDERED: MAG HYDROX/AL HYDROX/SIMETH 30 ML UNIT-DOSE CUP PO PRN (00:36)
[2022-11-04] MEDS ORDERED: BENZOCAINE/MENTHOL (CHLORASEPTIC ) LOZENGE MM PRN (00:36)
[2022-11-04] MEDS ORDERED: DICYCLOMINE HCL 10 MG CAPSULE PO PRN (00:36)
[2022-11-04] MEDS ORDERED: IBUPROFEN 600 MG TABLET (FP) PO PRN (00:36)
[2022-11-04] MEDS ORDERED: POLYETHYLENE GLYCOL (HEALTHYLAX) 3350 17 GM PACKET PO PRN (00:36)
[2022-11-04] MEDS ORDERED: ONDANSETRON *ODT* 4 MG TABLET SL PRN (00:36)
[2022-11-04] MEDS ORDERED: MAGNESIUM HYDROX 2400MG/30ML ORAL SUSPENSION 30 ML CUP PO PRN (00:36)
[2022-11-04] MEDS ORDERED: P-EPHED 60MG/TRIPROLIDI 2.5MG TABLET PO PRN (00:36)
[2022-11-04] MEDS ORDERED: BENZONATATE 200 MG CAPSULE PO PRN (00:36)
[2022-11-04] MEDS ORDERED: guaiFENesin 600 MG TABLET.ER (FP) PO PRN (00:36)
[2022-11-04] MEDS ORDERED: BISMUTH SUBSALICYLATE 524 MG/30 ML PO PRN (00:36)
[2022-11-04] MEDS ORDERED: NALOXONE HCL 0.4 MG/ML VIAL IM PRN (00:36)
[2022-11-04] MEDS ORDERED: LOPERAMIDE HCL 2 MG CAPSULE PO PRN (00:36)
[2022-11-04] MEDS ORDERED: ACETAMINOPHEN 325 MG TABLET (FP) PO PRN (00:36)
[2022-11-04] MEDS ORDERED: IBUPROFEN 400 MG TABLET (FP) PO PRN (00:36)
[2022-11-04] MEDS ORDERED: NALOXONE HCL (KLOXXADO) 8 MG SPRAY NS PRN (00:36)
[2022-11-04] MEDS: PRENATAL VITAMINS W/ FOLIC ACID TABLET (FP) PO SCH (10:30)
[2022-11-04] MEDS: hydrOXYzine PAMOATE 25 MG CAPSULE (FP) PO PRN ×2 (10:30→23:08)
[2022-11-04] MEDS: METHOCARBAMOL 500 MG TABLET PO PRN (10:30)
[2022-11-04] MEDS ORDERED: methaDONE HCL 10 MG TABLET PO ONE (10:45)
[2022-11-04] MEDS: SERTRALINE HCL 50 MG TABLET (FP) PO SCH (11:00)
[2022-11-04] MEDS: ARIPiprazole 5 MG TABLET PO SCH (11:00)
[2022-11-04] MEDS: diazePAM 5 MG TABLET PO SCH ×2 (17:05→22:05)
[2022-11-04] MEDS: MELATONIN 5 MG TABLETS PO SCH (22:06)
[2022-11-04] MEDS: THIAMINE HCL 100 MG TABLET (FP) PO SCH (22:06)
[2022-11-05] MEDS: methaDONE HCL 10 MG TABLET PO SCH (06:02)
[2022-11-05] MEDS: diazePAM 5 MG TABLET PO SCH ×3 (06:02→21:57)
[2022-11-05] MEDS: SERTRALINE HCL 50 MG TABLET (FP) PO SCH (10:55)
[2022-11-05] MEDS: PRENATAL VITAMINS W/ FOLIC ACID TABLET (FP) PO SCH (10:55)
[2022-11-05] MEDS: ARIPiprazole 5 MG TABLET PO SCH (10:55)
[2022-11-05 12:14] LABS: POTASSIUM 3.8 mmol/L (3.5-5.1)
[2022-11-05 12:48] LABS: HEMATOCRIT 40.4 % (35.4-49); HEMOGLOBIN 12.5 GM/dL (11.7-16.9); MCH 21.5 pg (25.7-33.7); MCHC 30.8 g/dl (32.0-35.9); MEAN CELL VOLUME 69.8 fl (80-96); MEAN PLT VOLUME 9.9 fl (7.5-11.1); PLATELET COUNT 179 10^3/uL (134-434); RBC 5.79 M/mm3 (4.00-5.60); RDW 15.2 % (11.9-15.9)
[2022-11-05 13:07] LABS: CALCIUM 8.4 mg/dL (8.5-10.1)
[2022-11-05 13:08] LABS: ALBUMIN 3.7 g/dl (3.4-5.0)
[2022-11-05 13:11] LABS: CREATININE 1.2 mg/dL (0.55-1.3)
[2022-11-05 13:13] LABS: TOT PROT 6.4 g/dl (6.4-8.2)
[2022-11-05] MEDS: hydrOXYzine PAMOATE 25 MG CAPSULE (FP) PO PRN ×2 (17:24→21:56)
[2022-11-05] MEDS: NICOTINE POLACRILEX 2 MG GUM BC PRN (17:33)
[2022-11-05] MEDS: MELATONIN 5 MG TABLETS PO SCH (21:56)
[2022-11-05] MEDS: THIAMINE HCL 100 MG TABLET (FP) PO SCH (21:56)
[2022-11-05] MEDS: METHOCARBAMOL 500 MG TABLET PO PRN (21:57)
[2022-11-06] MEDS: methaDONE HCL 10 MG TABLET PO SCH (05:38)
[2022-11-06] MEDS: diazePAM 5 MG TABLET PO SCH ×2 (05:38→17:13)
[2022-11-06] MEDS: hydrOXYzine PAMOATE 25 MG CAPSULE (FP) PO PRN ×2 (10:35→22:18)
[2022-11-06] MEDS: SERTRALINE HCL 50 MG TABLET (FP) PO SCH (10:35)
[2022-11-06] MEDS: METHOCARBAMOL 500 MG TABLET PO PRN ×2 (10:35→17:14)
[2022-11-06] MEDS: ARIPiprazole 5 MG TABLET PO SCH (10:35)
[2022-11-06] MEDS: PRENATAL VITAMINS W/ FOLIC ACID TABLET (FP) PO SCH (10:35)
[2022-11-06] MEDS: NICOTINE POLACRILEX 2 MG GUM BC PRN (10:37)
[2022-11-06] MEDS: MELATONIN 5 MG TABLETS PO SCH (22:18)
[2022-11-06] MEDS: THIAMINE HCL 100 MG TABLET (FP) PO SCH (22:18)
[2022-11-07] MEDS: methaDONE HCL 10 MG TABLET PO SCH (05:51)
[2022-11-07] MEDS ORDERED: diazePAM 5 MG TABLET PO ONE (06:00)
[2022-11-07 09:39] VITALS: BP 116/69; PULSE 59; RESP 18; TEMP 96.7
[2022-11-07] MEDS: PRENATAL VITAMINS W/ FOLIC ACID TABLET (FP) PO SCH (10:03)
[2022-11-07] MEDS: ARIPiprazole 5 MG TABLET PO SCH (10:04)
[2022-11-07] MEDS: SERTRALINE HCL 50 MG TABLET (FP) PO SCH (10:04)
[2022-11-07] MEDS: METHOCARBAMOL 500 MG TABLET PO PRN (10:04)
[2022-11-07] MEDS: hydrOXYzine PAMOATE 25 MG CAPSULE (FP) PO PRN (10:11)
== END 2022-11-07 12:42 | disposition home or self-care (01) | DRG 773 ==
LOC: YASAS 16:16 → Y6N 11-04 01:42
PROVIDERS: ADMIT Allergy & Immunology; ATTEND Surgery
PROC: HZ2ZZZZ Detoxification Services for Substance Abuse Treatment (ICD-10-PCS; principal; 2022-11-04)
DX: F13.230 Sedative, hypnotic or anxiolytic dependence with withdrawal, uncomplicated (principal); F11.20 Opioid dependence, uncomplicated; F14.20 Cocaine dependence, uncomplicated; F12.20 Cannabis dependence, uncomplicated; F17.210 Nicotine dependence, cigarettes, uncomplicated; F25.1 Schizoaffective disorder, depressive type; F19.282 Other psychoactive substance dependence with psychoactive substance-induced sleep disorder; F43.10 Post-traumatic stress disorder, unspecified; Z62.810 Personal history of physical and sexual abuse in childhood; Z56.0 Unemployment, unspecified; Z59.00 Homelessness unspecified
CPT/HCPCS: 36415; 80053; 85027; 86780; 87635

== ENCOUNTER 2023-07-12 12:19 | Inpatient (IN) | payer OTHER ==
[2023-07-12 14:37] VITALS: BMI 32.3
[2023-07-12] MEDS ORDERED: BISMUTH SUBSALICYLATE 262 MG/15 ML BTL PO PRN (14:38)
[2023-07-12] MEDS ORDERED: NALOXONE HCL 0.4 MG/ML VIAL IM PRN (14:38)
[2023-07-12] MEDS ORDERED: MAG HYDROX/AL HYDROX/SIMETH 30 ML UNIT-DOSE CUP PO PRN (14:38)
[2023-07-12] MEDS ORDERED: POLYETHYLENE GLYCOL (HEALTHYLAX) 3350 17 GM PACKET PO PRN (14:38)
[2023-07-12] MEDS ORDERED: BENZOCAINE/MENTHOL (CHLORASEPTIC ) LOZENGE MM PRN (14:38)
[2023-07-12] MEDS ORDERED: DICYCLOMINE HCL 10 MG CAPSULE PO PRN (14:38)
[2023-07-12] MEDS ORDERED: IBUPROFEN 400 MG TABLET (FP) PO PRN (14:38)
[2023-07-12] MEDS ORDERED: IBUPROFEN 600 MG TABLET (FP) PO PRN (14:38)
[2023-07-12] MEDS ORDERED: LOPERAMIDE HCL 2 MG CAPSULE PO PRN (14:38)
[2023-07-12] MEDS ORDERED: guaiFENesin 600 MG TABLET.ER (FP) PO PRN (14:38)
[2023-07-12] MEDS ORDERED: MAGNESIUM HYDROX 2400MG/30ML ORAL SUSPENSION 30 ML CUP PO PRN (14:38)
[2023-07-12] MEDS ORDERED: ONDANSETRON *ODT* 4 MG TABLET SL PRN (14:38)
[2023-07-12] MEDS ORDERED: ACETAMINOPHEN 325 MG TABLET (FP) PO PRN (14:38)
[2023-07-12] MEDS ORDERED: NALOXONE HCL (KLOXXADO) 8 MG SPRAY NS PRN (14:38)
[2023-07-12] MEDS ORDERED: BENZONATATE 200 MG CAPSULE PO PRN (14:38)
[2023-07-12] MEDS: diazePAM 5 MG TABLET PO SCH (16:59)
[2023-07-12] MEDS: MELATONIN 5 MG TABLETS PO SCH (22:14)
[2023-07-12] MEDS: THIAMINE 100 MG TABLET PO SCH (22:16)
[2023-07-12] MEDS: hydrOXYzine PAMOATE 25 MG CAPSULE (FP) PO PRN (22:17)
[2023-07-13] MEDS: methaDONE HCL 10 MG TABLET PO SCH (05:39)
[2023-07-13] MEDS: METHOCARBAMOL 500 MG TABLET PO PRN (10:05)
[2023-07-13] MEDS: SERTRALINE HCL 50 MG TABLET (FP) PO SCH (10:05)
[2023-07-13] MEDS: ARIPiprazole 5 MG TABLET PO SCH (10:05)
[2023-07-13] MEDS: PRENATAL VITAMINS W/ FOLIC ACID TABLET (FP) PO SCH (10:05)
[2023-07-13 11:35] LABS: HEMATOCRIT 37.5 % (35.4-49); HEMOGLOBIN 12.1 GM/dL (11.7-16.9); MCH 21.5 pg (25.7-33.7); MCHC 32.2 g/dl (32.0-35.9); MEAN CELL VOLUME 66.7 fl (80-96); PLATELET COUNT 211 10^3/uL (134-434); RBC 5.62 M/mm3 (4.00-5.60); RDW 15.1 % (11.9-15.9); WHITE BLOOD COUNT 5.6 K/mm3 (4.0-10.0)
[2023-07-13 12:02] LABS: CHLORIDE 107 mmol/L (98-107); SODIUM 139 mmol/L (136-145)
[2023-07-13 12:06] LABS: BLOOD UREA NITROGEN 12.5 mg/dL (7-18); GLUCOSE,RANDOM 100 mg/dL (74-106)
[2023-07-13 12:07] LABS: ALBUMIN 3.4 g/dl (3.4-5.0); ANION GAP 4 mmol/L (4-13); CALCIUM 8.6 mg/dL (8.5-10.1); CO2 28 mmol/L (21-32)
[2023-07-13 12:09] LABS: CREATININE 1.2 mg/dL (0.55-1.3); SGPT/ALT 77 U/L (13-61)
[2023-07-13 12:10] LABS: SGOT/AST 38 U/L (15-37)
[2023-07-13 12:11] LABS: BILIRUBIN,TOTAL 0.5 mg/dL (0.2-1); TOT PROT 6.4 g/dl (6.4-8.2)
[2023-07-13 12:12] LABS: ALK PHOS 102 U/L (45-117)
[2023-07-14] MEDS: diazePAM 5 MG TABLET PO SCH (05:31)
[2023-07-14] MEDS: LACTULOSE 20 GM/30 ML UDC (FOR ORAL USE ONLY) PO SCH (13:35)
[2023-07-14] MEDS: diazePAM 5 MG TABLET PO PRN (17:13)
[2023-07-14] MEDS: NICOTINE POLACRILEX 4 MG GUM BUC PRN (17:41)
[2023-07-15] MEDS: diazePAM 5 MG TABLET PO SCH (05:27)
[2023-07-15 09:29] VITALS: BP 125/73; PULSE 76; RESP 18; TEMP 97.5
[2023-07-16] MEDS ORDERED: diazePAM 5 MG TABLET PO ONE (06:00)
[2023-07-17] MEDS ORDERED: diazePAM 5 MG TABLET PO ONE (06:00)
== END 2023-07-15 09:00 | disposition left against medical advice (07) | DRG 770 ==
LOC: YASAS 12:19 → Y6N 15:25
PROVIDERS: ADMIT Allergy & Immunology; ATTEND Surgery
PROC: HZ2ZZZZ Detoxification Services for Substance Abuse Treatment (ICD-10-PCS; principal; 2023-07-12)
DX: F10.230 Alcohol dependence with withdrawal, uncomplicated (principal); F11.20 Opioid dependence, uncomplicated; F14.20 Cocaine dependence, uncomplicated; F12.20 Cannabis dependence, uncomplicated; F17.210 Nicotine dependence, cigarettes, uncomplicated; F25.1 Schizoaffective disorder, depressive type; F31.9 Bipolar disorder, unspecified; F43.10 Post-traumatic stress disorder, unspecified; R79.89 Other specified abnormal findings of blood chemistry; Z62.810 Personal history of physical and sexual abuse in childhood; Z63.8 Other specified problems related to primary support group; Z86.19 Personal history of other infectious and parasitic diseases
CPT/HCPCS: 36415; 80053; 80305; 80307; 82140; 85027; 86593; 86780; 93005; 93010

== ENCOUNTER 2024-07-03 18:29 | Inpatient (IN) | payer OTHER ==
[2024-07-03 19:09] VITALS: BMI 30.1
[2024-07-03] MEDS ORDERED: BENZONATATE 200 MG CAPSULE PO PRN (20:23)
[2024-07-03] MEDS ORDERED: MAGNESIUM HYDROX 2400MG/30ML ORAL SUSPENSION 30 ML CUP PO PRN (20:23)
[2024-07-03] MEDS ORDERED: DICYCLOMINE HCL 10 MG CAPSULE PO PRN (20:23)
[2024-07-03] MEDS ORDERED: MAG HYDROX/AL HYDROX/SIMETH 30 ML UNIT-DOSE CUP PO PRN (20:23)
[2024-07-03] MEDS ORDERED: BISMUTH SUBSALICYLATE 524 MG/30 ML PO PRN (20:23)
[2024-07-03] MEDS ORDERED: NALOXONE (NARCAN) HCL 4 MG/0.1 ML SPRAY NS PRN (20:23)
[2024-07-03] MEDS ORDERED: BENZOCAINE/MENTHOL (CHLORASEPTIC ) LOZENGE MM PRN (20:23)
[2024-07-03] MEDS ORDERED: guaiFENesin 600 MG TABLET.ER (FP) PO PRN (20:23)
[2024-07-03] MEDS ORDERED: ONDANSETRON *ODT* 4 MG TABLET SL PRN (20:23)
[2024-07-03] MEDS ORDERED: IBUPROFEN 400 MG TABLET (FP) PO PRN (20:23)
[2024-07-03] MEDS ORDERED: ACETAMINOPHEN 325 MG TABLET (FP) PO PRN (20:23)
[2024-07-03] MEDS ORDERED: POLYETHYLENE GLYCOL (HEALTHYLAX) 3350 17 GM PACKET PO PRN (20:23)
[2024-07-03] MEDS ORDERED: IBUPROFEN 600 MG TABLET (FP) PO PRN (20:23)
[2024-07-03] MEDS ORDERED: MELATONIN 5 MG TABLETS ONE (22:13)
[2024-07-03] MEDS: MELATONIN 5 MG TABLETS PO SCH (22:24)
[2024-07-03] MEDS: THIAMINE 100 MG TABLET PO SCH (22:26)
[2024-07-03] MEDS: METHOCARBAMOL 500 MG TABLET PO PRN (22:59)
[2024-07-03] MEDS: hydrOXYzine PAMOATE 25 MG CAPSULE (FP) PO PRN (22:59)
[2024-07-03] MEDS: NICOTINE POLACRILEX 4 MG GUM BUC PRN (23:41)
[2024-07-04] MEDS ORDERED: methaDONE HCL 10 MG TABLET (FOR DETOX USE ONLY) PO PRN (09:20)
[2024-07-04] MEDS ORDERED: cloNIDine HCL 0.1 MG TABLET PO PRN (09:20)
[2024-07-04] MEDS: methaDONE HCL 10 MG TABLET (FOR DETOX USE ONLY) PO ONE (10:09)
[2024-07-04] MEDS: NICOTINE 14 MG/24 HOURS TOPICAL PATCH TD SCH (10:09)
[2024-07-04] MEDS: PRENATAL VITAMINS W/ FOLIC ACID TABLET (FP) PO SCH (10:09)
[2024-07-04] MEDS: chlordiazePOXIDE HCL 25 MG CAPSULE PO SCH (10:11)
[2024-07-04 11:53] LABS: HEMATOCRIT 39.4 % (40.1-51.0); HEMOGLOBIN 12.1 g/dL (13.7-17.5); MCHC 30.7 g/dl (32.3-36.5); MEAN CELL VOLUME 68.4 fl (79.0-92.2); PLATELET COUNT 234 x10^3/uL (163-337); RDW 15.4 % (12.2-16.1)
[2024-07-04 13:03] LABS: CHLORIDE 104 mmol/L (98-107); POTASSIUM 3.8 mmol/L (3.5-5.1); SODIUM 139 mmol/L (136-145)
[2024-07-04 13:05] LABS: ALBUMIN 3.5 g/dl (3.4-5.0); ANION GAP 7 mmol/L (4-13); BLOOD UREA NITROGEN 17.3 mg/dL (7-18); CALCIUM 9.2 mg/dL (8.5-10.1); CO2 28 mmol/L (21-32)
[2024-07-04 13:06] LABS: GLUCOSE,RANDOM 121 mg/dL (74-106)
[2024-07-04 13:09] LABS: CREATININE 1.3 mg/dL (0.55-1.3); SGPT/ALT 41 U/L (13-61)
[2024-07-04 13:11] LABS: ALK PHOS 91 U/L (45-117); BILIRUBIN,TOTAL 0.5 mg/dL (0.2-1); SGOT/AST 31 U/L (15-37); TOT PROT 6.2 g/dl (6.4-8.2)
[2024-07-04] MEDS: LOPERAMIDE HCL 2 MG CAPSULE PO PRN (17:49)
[2024-07-04] MEDS: traZODone HCL 50 MG TABLET (FP) PO SCH (22:22)
[2024-07-05] MEDS: chlordiazePOXIDE HCL 25 MG CAPSULE PO PRN (22:52)
[2024-07-06] MEDS: chlordiazePOXIDE HCL 25 MG CAPSULE PO SCH (05:38)
[2024-07-06] MEDS: methaDONE HCL 10 MG TABLET (FOR DETOX USE ONLY) PO ONE (10:17)
[2024-07-07] MEDS ORDERED: chlordiazePOXIDE HCL 10 MG CAPSULE PO PRN
[2024-07-07] MEDS: chlordiazePOXIDE HCL 10 MG CAPSULE PO SCH (05:37)
[2024-07-08] MEDS: chlordiazePOXIDE HCL 10 MG CAPSULE PO SCH (05:39)
[2024-07-08] MEDS: methaDONE HCL 10 MG TABLET (FOR DETOX USE ONLY) PO ONE (09:21)
[2024-07-09] MEDS: chlordiazePOXIDE HCL 10 MG CAPSULE PO ONE (05:47)
[2024-07-09 08:46] VITALS: BP 99/57; PULSE 72; RESP 16; TEMP 97.6
== END 2024-07-09 09:38 | disposition home or self-care (01) | DRG 773 ==
LOC: YASAS 18:29 → Y6N 21:44
PROVIDERS: ADMIT Allergy & Immunology; ATTEND Allergy & Immunology
PROC: HZ2ZZZZ Detoxification Services for Substance Abuse Treatment (ICD-10-PCS; principal; 2024-07-03)
DX: F11.23 Opioid dependence with withdrawal (principal); F10.230 Alcohol dependence with withdrawal, uncomplicated; F14.20 Cocaine dependence, uncomplicated; F12.20 Cannabis dependence, uncomplicated; F17.210 Nicotine dependence, cigarettes, uncomplicated; F25.1 Schizoaffective disorder, depressive type; F19.282 Other psychoactive substance dependence with psychoactive substance-induced sleep disorder; F43.10 Post-traumatic stress disorder, unspecified; E11.9 Type 2 diabetes mellitus without complications; Z62.810 Personal history of physical and sexual abuse in childhood; Z63.8 Other specified problems related to primary support group; Z59.00 Homelessness unspecified
CPT/HCPCS: 36415; 80053; 80305; 80307; 85027; 86593; 86780; 93005; 93010